=== PATIENT | male | born 1955 | race Caucasian/White ===

== ENCOUNTER → 2018-07-27 07:33 | Outpatient (CLI) | payer OTHER, SELFPAY | PROVIDERS: PCP General Practice; Visit Provider General Practice | DX: M25.511 Pain in right shoulder (principal); Z53.9 Procedure and treatment not carried out, unspecified reason ==

== ENCOUNTER 2019-07-22 12:38 | Day surgery (SDC) | payer MEDICARE, OTHER, SELFPAY ==
--- NOTE | 2019-07-22 | PATH_ITS ---
[facility] Accession Number: [id number] . 01 Material submitted: . colon - POLYP AT 60CM . 02 Diagnosis: Colon at 60 cm, Polyp: Tubular adenoma. MRV 07/23/2019 1242 Local . 02 Electronically signed: . Keon Kimbrough MD, PhD, Pathologist NPI- [id number] . 01 Gross description: . POLYP AT 60CM: Received in formalin are 2 fragment(s) of pritchett, soft tissue measuring 0.2 x 0.2 x 0.2 cm to 0.4 x 0.2 x 0.2 cm submitted entirely in 1 cassette(s) /[facility] [place] 2234 Local . 02 Pathologist provided ICD-10: D12.6 . 02 CPT . 498460 Performed at: 01 [facility] [address] [place] [address], [place], [place] [id number] MD Hardik Brothers MD Phone: [phone] Performed at: 02 [facility] [address] [place], [place] [id number] MD Callie Ramachandran MD Phone: [phone]
[2019-07-22] MEDS: SODIUM CHLORIDE 0.9% 1,000 ML 200 ML IV (14:07)
--- NOTE | 2019-07-22 14:07 | PM.HP.1 ---
History of Present Illness History of Present Illness Date Patient Seen: 07/22/19 Time Patient Seen: 14:08 Chief complaint: [id number] Narrative: Patient here for screening colonoscopy had polyps removed 5 years ago they were benign. Meds Home Medications and Allergies Home Medications Medication Instructions Recorded Confirmed Type amlodipine 10 mg PO DAILY 07/22/19 07/22/19 History aspirin 325 mg PO DAILY 07/22/19 07/22/19 History atorvastatin [Lipitor] 80 mg PO DAILY 07/22/19 07/22/19 History chlorthalidone 25 mg PO 4-6XD 07/22/19 07/22/19 History metoprolol succinate 50 mg PO DAILY 07/22/19 07/22/19 History omeprazole 20 mg PO DAILY 07/22/19 07/22/19 History Allergies Allergy/AdvReac Type Severity Reaction Status Date / Time amoxicillin Allergy Intermediate Hives Verified 07/22/19 13:57 REI Inhibitors Allergy Unknown Verified 07/22/19 13:57 Review of Systems Review of Systems ROS: Yes All systems reviewed with the patient and are negative except as otherwise documented Exam Narrative Exam Narrative: Patient is alert and oriented with no complaints Lungs are clear with no rales or wheezes Heart regular rhythm no murmur Abdomen soft no organomegaly no tenderness rectal to be done at colonoscopy Assessment & Plan Assessment & Plan narrative: Patient here for screening colonoscopy is asymptomatic with no hematochezia or melena. He had polyps removed 5 years ago. He has no unanswered questions.
[2019-07-22 14:08] VITALS: BP 161/85; PULSE 76; RESP 20; TEMP 36.3; O2SAT 98; BMI 32.3
--- NOTE | 2019-07-22 15:14 | PM.OP.ENDO ---
Operative Date/Time/Diagnoses Date of procedure: 07/22/19 Time of procedure: 15:14 Pre-op diagnosis: Screening colonoscopy Post-op diagnosis: other (Patient had 2 polyps 1 at 60 cm and the other at the hepatic flexure these were both excised with the cold snare I could only retrieved the 1 at 60 cm for histology) Procedure & Clinicians Study performed: Total colonoscopy to the cecum with polypectomy x2 Same procedure as scheduled: Yes Surgeon: Steve Ramsay Procedure Notes SCOAP/Timeout: This was done Procedure in detail: The patient was properly identified during surgical pause was given a total of 5 mg of Versed 100 micro g of fentanyl and remained comfortable throughout the procedure. The flexible fiberoptic colonoscope inserted transanally to the cecum patient had 1 5 mm polyp at 60 cm which was excised with a cold snare and submitted for histology. In the hepatic flexure the patient had a flat 8 mm polyp which I completely excised with the cold snare however I could not retrieve this polyp we searched extensively for added is could not find it. No other abnormalities were encountered procedures very well tolerated Scope withdrawal time: 18 Sedation minutes: 30 Findings: polyp Specimen(s): other (Polyp at 60 cm was submitted I could not obtain the polyp removed at the hepatic flexure) Complications: none Post-procedure Recommendations: Colonscopy in 5 years Disposition: PACU
[2019-07-22] MEDS: fentaNYL 250 MCG/5 ML INJ IV (15:16)
[2019-07-22] MEDS: MIDAZOLAM 5 MG/5 ML VIAL IV (15:16)
[2019-07-22 15:19] VITALS: BP 123/80; PULSE 78; RESP 15; TEMP 37.1; O2SAT 95
[2019-07-22 15:34] VITALS: BP 138/82; PULSE 82; RESP 16; TEMP 36.2; O2SAT 98
--- NOTE | 2019-07-22 15:46 | SUR.PHASEII ---
Patient discharged in stable condition with . VSS. Tolerated coffee without difficulty. Denies pain or nausea.
== END 2019-07-22 15:58 | disposition home or self-care (01) ==
PROVIDERS: PCP General Practice; Referring Provider Surgery; Visit Provider Surgery
PROC: 0DJD8ZZ Inspection of Lower Intestinal Tract, Via Natural or Artificial Opening Endoscopic (ICD-10-PCS; CPT 45378; principal; 2019-07-22 14:30)
DX: Z12.11 Encounter for screening for malignant neoplasm of colon (principal); Z86.010 Personal history of colon polyps; D12.6 Benign neoplasm of colon, unspecified
CPT/HCPCS: 45385; 99152; 99153; J2250; J3010

== ENCOUNTER → 2022-05-25 11:29 | Outpatient (CLI) | payer MEDICARE, OTHER, SELFPAY ==
--- NOTE | 2022-05-25 | DI.MRI.S_ITS ---
PROCEDURE: MR HEAD/BRAIN WO CON INDICATIONS: VISION LOSS TECHNIQUE: Non-contrast axial T1 spin echo, axial T2 fast spin echo, sagittal and axial FLAIR, coronal T2 fast spin echo, axial gradient echo, axial diffusion and ADC through the brain. COMPARISON: None. FINDINGS: Image quality: Excellent. CSF spaces: Ventricles appear symmetric in size and shape. Basal cisterns are patent. No extra-axial fluid collections. Brain: No intracranial bleeds or mass effects. There is cerebral volume loss for age. There are periventricular and deep white matter chronic small vessel ischemic changes. Brainstem appears normal. Diffusion-weighted images show no acute ischemic insults. No chronic ischemic insults. Normal intravascular flow voids are present. Skull and face: Calvarial bone marrow is normal in signal. Orbits are normal. Sinuses: Sinuses and mastoids are clear. IMPRESSION: 1. Mild volume loss. Minimal small vessel ischemic disease. 2. No acute process. No recent infarct. Dictated by: Dayanna Hendricks M.D. on 05/25/2022 at 12:04 Approved by: Dayanna Hendricks M.D. on 05/25/2022 at 12:05
--- NOTE | 2022-05-25 | DI.CT.S_ITS ---
PROCEDURE: CT CHEST WO CON INDICATIONS: CHRONIC OBSTRUCTIVE PULMONARY DISEASE TECHNIQUE: Noncontrast 5 mm thick sections acquired from the pulmonary apices to the posterior costophrenic angles. 1 mm lung window, 5 mm thick coronal and sagittal and 7 mm axial MIP reformats were then acquired. For radiation dose reduction, the following was used: automated exposure control, adjustment of mA and/or kV according to patient size. COMPARISON: None. FINDINGS: Image quality: Excellent. Lungs and pleura: No acute air space opacities. No pleural effusions or pneumothorax. Central and peripheral airways are patent and normal in caliber. Mediastinum: Heart size is normal. No pericardial effusion. No mediastinal adenopathy by size criteria. Thoracic aorta and central pulmonary arteries are normal in size. Scattered atheromatous calcifications are present within the aortic arch. Esophagus is normal in caliber. No hiatal hernia. Bones and chest wall: No suspicious bony lesions. No vertebral body compression fractures. No axillary or supraclavicular adenopathy by size criteria. Thyroid gland is unremarkable. Abdomen: A 1.7 cm calculus is present within the gallbladder fundus. Visualized upper abdominal solid organs and bowel loops appear otherwise normal in the absence of contrast. IMPRESSION: No suspicious pulmonary nodules or acute airspace opacities. Dictated by: Day Rogers M.D. on 05/25/2022 at 14:05 Approved by: Day Rogers M.D. on 05/25/2022 at 14:08
== END ==
PROVIDERS: PCP Family Medicine; Referring Provider Family Medicine; Visit Provider Family Medicine
DX: H54.60 Unqualified visual loss, one eye, unspecified (principal); H53.19 Other subjective visual disturbances; J44.9 Chronic obstructive pulmonary disease, unspecified
CPT/HCPCS: 70551; 71250

== ENCOUNTER → 2022-06-30 07:55 | Outpatient (CLI) | payer MEDICARE, OTHER, SELFPAY ==
--- NOTE | 2022-06-30 | DI.ECHO.S_ITS ---
[facility] +---------+ : : [address] : : : : [id number] : : : : Phone: [phone]+ Echocardiogram Report + + :Name: LIZETTE LIZ Study Date: 06/30/2022 Height: 66 in : :[facility] ReadingLocation: Weight: 200 lb : : Gender: Male BSA: 2.0 m2 : :: 1955 Age: 67 yrs BP: 162/85 mmHg: :Reason For Study: Chest Pain, History of AL : :Ordering Physician: BLUE, : :ODILIA Mace Performed By: Shahida Coronado : :Referring: ODILIA MCARTHUR : + + Interpretation Summary 1) Normal left ventricular size and thickness with mildly reduced systolic function (EF about 45%). 2) Basal inferior wall is akinetic. Basal to mid inferolateral wall are severely hypokinetic. 3) Normal right ventricular size and function. 4) There is mild aortic regurgitation. 5) There is mild aortic stenosis (valve area 1.8cm2, mean gradient 7mmHg, severity ratio 0.42). 6) No prior Echo available for comparison. Procedure: A two-dimensional transthoracic echocardiogram with color flow and Doppler was performed. The patient was in sinus bradycardia with heart rates between 49-66 bpm during the exam. Left Ventricle: The left ventricle is borderline dilated. Left ventricular ejection fraction is estimated to be 45 +/- 5%. Basal inferior wall is akinetic. Basal to mid inferolateral wall are severely hypokinetic. Diastolic parameters suggest a relaxation abnormality of the left ventricle, consistent with probable normal filling pressures. Right Ventricle: The right ventricle is normal in size and function. Atria: The left atrial size is normal. The right atrium is normal in size. There is no Doppler evidence for an interatrial shunt. Mitral Valve: The mitral valve is normal in structure and function. There is trace mitral regurgitation. Aortic Valve: The aortic valve is normal in structure and function. There is mild aortic stenosis. There is mild aortic regurgitation. Tricuspid Valve: The tricuspid valve is normal in structure and function. No tricuspid regurgitation. Pulmonary artery pressures cannot be estimated because of the lack of a measurable TR jet velocity. Pulmonic Valve: The pulmonic valve leaflets are thin and pliable; valve motion is normal. There is no pulmonic valvular regurgitation. Great Vessels: The dimensions of the ascending aorta are normal. The IVC was not well visualized secondary to technical limitations making central venous pressures difficult to estimate. Pericardium/ Pleura There is no pericardial effusion. There is no pleural effusion. MMode/2D Measurements & Calculations LVIDd: 5.6 cm LVOT diam: 2.3 cm LVIDs: 4.6 cm Ao root diam: 3.5 cm FS: 17.9 % asc Aorta Diam: 3.1 cm EPSS: 1.1 cm IVSd: 1.1 cm LVPWd: 1.2 cm LV jenkins. diameter/BSA (cm/m^2): 2.8 LV sys. diameter/BSA (cm/m^2): 2.3 LA dimension: 4.4 cm RA long axis: 4.9 cm LA A2 area: 15.2 cm2 RA area: 14.6 cm2 LA A4 area: 17.0 cm2 RA vol: 37.2 ml LA length (vol): 4.6 cm RA : 18.6 ml/m2 LA vol: 48.0 ml LA vol index: 24.0 ml/m2 RVD1 (basal): 2.8 cm LVLs ap4: 7.7 cm LVLd ap2: 8.6 cm LVLs ap2: 7.3 cm Doppler Measurements & Calculations Ao V2 max: 172.0 cm/sec LVOT Max Tito: 77.7 cm/sec Ao V2 mean: 123.0 cm/sec LV V1 max P.4 mmHg Ao max P.0 mmHg LV V1 VTI: 17.3 cm Ao mean P.0 mmHg MELI(I,D): 1.8 cm2 Ao V2 VTI: 40.8 cm MELI(V,D): 1.9 cm2 sev ratio: 0.42 MELI indexed to BSA (cm^2/m^2): 0.88 AI P1/2t: 423.4 msec AI dec slope: 350.0 cm/sec2 MV E max tito: 74.1 cm/sec PA V2 max: 102.0 cm/sec MV A max tito: 104.0 cm/sec PA V2 mean: 63.1 cm/sec MV E/A: 0.71 PA mean P.0 mmHg MV dec time: 0.34 sec MVA(VTI): 2.0 cm2 MV V2 mean: 68.7 cm/sec SV(LVOT): 71.9 ml MV mean P.0 mmHg MV V2 VTI: 36.2 cm AV P1/2t-pr_phl: 423.0 msec MV P1/2t-pr_phl: 100.0 msec AV VR_phl: 0.45 MELI(VTI)/BSA_phl: 0.88 Reading Physician:12:28 PM
== END ==
PROVIDERS: PCP Family Medicine; Referring Provider Family Medicine; Visit Provider Family Medicine
DX: I35.2 Nonrheumatic aortic (valve) stenosis with insufficiency (principal); R07.9 Chest pain, unspecified; R00.2 Palpitations; I25.2 Old myocardial infarction
CPT/HCPCS: 93306

== ENCOUNTER → 2022-08-18 07:34 | Outpatient (CLI) | payer MEDICARE, OTHER, SELFPAY ==
--- NOTE | 2022-08-18 | DI.US.S_ITS ---
PROCEDURE: US ABDOMEN COMPLETE INDICATIONS: RIGHT UPPER QUADRANT PAIN. ACUTE GASTRITIS WITHOUT BLEEDING. TECHNIQUE: Real-time scanning was performed of the abdominal and retroperitoneal organs, with image documentation. COMPARISON: [facility], [place], CT CHEST WO [facility], 05/25/2022, 11:56. FINDINGS: Liver: Echogenic. Main portal vein patent with antegrade flow Gallbladder: Stones and sludge are present. Nonspecific thickening of the gallbladder wall present measuring up to 5 millimeters. No sonographic Mora sign elicited. Biliary ducts: Difficult evaluation due to bowel gas. No definite intrahepatic ductal dilation identified. Possible extrahepatic ductal dilation measuring up to 12 millimeters. Pancreas: Not well visualized due to bowel gas. Spleen: Spleen is normal in size and homogeneous in echotexture. Kidneys: Kidneys are normal in size and echotexture. Right kidney measures 10.0 cm long; left kidney measures 10.1 cm long. No hydronephrosis or nephrolithiasis. No solid masses. Aorta: Not well visualized due to bowel gas. Iliacs: Not well visualized due to bowel gas. IVC: Not well visualized due to bowel gas. Miscellaneous: No free abdominal fluid. IMPRESSION: 1. Technically challenging examination due to bowel gas. 2. Cholelithiasis present as before. Nonspecific thickening of the gallbladder wall also present, however no sonographic Mora sign elicited and the gallbladder does not appear distended. Findings are considered not highly suspicious for acute cholecystitis, but acute cholecystitis cannot be excluded. Clinical correlation is recommended, if additional imaging is desired nuclear medicine hepatobiliary scan may be helpful. 3. Possible extrahepatic biliary ductal dilation. No intrahepatic ductal dilation identified. 4. The liver is echogenic, a nonspecific finding commonly seen in the setting of steatosis. Dictated by: Feng Quintanilla M.D. on 08/18/2022 at 18:53 Approved by: Feng Quintanilla M.D. on 08/18/2022 at 18:58
== END ==
PROVIDERS: PCP Family Medicine; Referring Provider Family Medicine; Visit Provider Family Medicine
DX: K29.00 Acute gastritis without bleeding (principal); R10.11 Right upper quadrant pain; K80.20 Calculus of gallbladder without cholecystitis without obstruction
CPT/HCPCS: 76700

== ENCOUNTER 2022-09-07 01:23 | Emergency (ER) | payer MEDICARE, OTHER, SELFPAY ==
[2022-09-07] VITALS (26 sets, daily range): BP systolic 138–221; BP diastolic 63–106; PULSE 59–82; RESP 18–52; TEMP 36.4–36.8; O2SAT 89–99; BMI 32.3
--- NOTE | 2022-09-07 01:32 | DI.US.S_ITS ---
PROCEDURE: US ABDOMEN LIMITED INDICATIONS: RUQ PAIN, HTN TECHNIQUE: Real-time focused scanning was performed of the abdomen, with image documentation. COMPARISON: [facility], , US ABDOMEN COMPLETE, 08/18/2022, 8:02. FINDINGS: Liver length of 14.1 centimeters. The liver is echogenic. Numerous tiny mobile gallstones are present within the gallbladder. No gallbladder wall thickening or sonographic Mora sign. Extrahepatic bile duct is not well seen due to bowel gas but measures approximately 5 millimeters. No intrahepatic ductal dilation identified. Visualized pancreas is unremarkable sonographically. Visualized abdominal aorta is nonaneurysmal, proximal abdominal aorta not visualized, mid abdominal aorta 1.7 centimeters, distal abdominal aorta 1.3 centimeters, right common iliac artery 0.9 centimeters, left common iliac artery 0.9 centimeters. IMPRESSION: 1. Cholelithiasis without evidence of acute cholecystitis. 2. The liver is echogenic, a nonspecific finding commonly seen in the setting of steatosis. This report is concordant with the preliminary report. Dictated by: Feng Quintanilla M.D. on 09/07/2022 at 7:50 Approved by: Feng Quintanilla M.D. on 09/07/2022 at 7:54
--- NOTE | 2022-09-07 01:33 | ED_ITS ---
HPI - General Adult General Chief complaint: Abdominal Pain Stated complaint: GALL BLADDER ATTACK Time Seen by Provider: 09/07/22 01:25 Source: patient and family Mode of arrival: Ambulatory Limitations: no limitations History of Present Illness HPI narrative: Patient is a 67-year-old male. Has a known history of gallbladder disease. Approximately 1 week ago had a preop appointment with General surgery to discuss having his gallbladder removed. He is had a couple gallbladder attacks prior to this evening which led to that appointment with General surgery. He states he is scheduled for surgery in approximately 2-3 weeks. He states that he was at his normal state of health last evening. He did eat pizza last night. At approximately midnight he woke up with pain that is in his epigastric region that he states radiated up to the left side of his chest and also to his back. He states he has had pain like this in the past but this is the worst it has ever been. No problems breathing. No nausea. He also states the pain is throughout his abdomen. No change in bowel habits. No urinary symptoms. Has not tried anything for symptoms prior to arrival. He does report a history of hypertension. He did take his blood pressure medicine last evening. He has had a heart attack in the past. He states he is had a fairly extensive workup of his heart by his primary doctor because of discomfort that he has been having in his chest and abdomen. He reports that workup has been unremarkable up to this point they are hoping that removing his gallbladder would help the symptoms. He states that the discomfort is in his epigastric region. It does radiate to his back and also up into the left side of his chest. Related Data Home Medications Medication Instructions Recorded Confirmed atorvastatin 80 mg tablet (Lipitor) 80 mg PO DAILY 07/22/19 09/01/22 ascorbic acid (vitamin C) 500 mg mg PO 09/01/22 09/01/22 capsule aspirin 81 mg capsule 81 mg PO DAILY 09/01/22 09/01/22 carvedilol 6.25 mg tablet 6.25 mg PO .UNKNOWN 09/01/22 09/01/22 chlorthalidone 50 mg tablet 50 mg PO DAILY 09/01/22 09/01/22 cholecalciferol (vitamin D3) 125 125 mcg PO DAILY 09/01/22 09/01/22 mcg (5,000 unit) capsule esomeprazole magnesium 40 mg 40 mg PO DAILY 09/01/22 09/01/22 capsule,delayed release (Nexium) gabapentin 100 mg capsule 100 mg PO DAILY 09/01/22 09/01/22 losartan 100 mg tablet 100 mg PO DAILY 09/01/22 09/01/22 valacyclovir 1 gram tablet 1,000 mg PO DAILY 09/01/22 09/01/22 zinc acetate 50 mg (zinc) capsule 50 mg PO DAILY 09/01/22 09/01/22 (Galzin) Allergies Allergy/AdvReac Type Severity Reaction Status Date / Time amoxicillin Allergy Intermediate Hives Verified 09/01/22 09:18 REI Inhibitors Allergy Unknown Verified 09/01/22 09:18 Review of Systems Review of Systems ROS Unobtainable: All systems reviewed & are unremarkable except as noted in HPI and below Patient History Medical History Acute gastritis Coronary arteriosclerosis Hypertension RUQ abdominal pain Social History marital status: household members: spouse lives independently: Yes occupational status: previously employed Smoking Status: Former smoker alcohol intake: former Smoking Status: Former smoker Exam Initial Vital Signs Initial Vital Signs: Vital Signs Temperature 98.2 F 09/07/22 01:31 Pulse Rate 67 09/07/22 01:31 Respiratory Rate 22 09/07/22 01:31 Blood Pressure 221/98 H 09/07/22 01:31 Pulse Oximetry 99 09/07/22 01:31 Oxygen Delivery Method Room Air 09/07/22 01:31 Const General: diaphoretic and ill appearing HENCT Head: normal to inspection and normocephalic Resp Effort & Inspection: normal respiratory effort Auscultation: clear to auscultation bilaterally Cardio Rate: regular rate Rhythm: regular rhythm GI Inspection: non-distended Palpation: No firm and tender (Epigastric region) Back/Spine/Pelvis Back: normal to inspection Skin General: pallor Neuro General: patient alert, patient awake, patient oriented x3 and moves all extremities Extrem General: No edema Psych Appearance: grossly normal Course Orders Ordered: ED Orders 09/07/22 01:30 Complete Blood Count AUTO DIFF Stat Comprehensive Metabolic Panel Stat Lipase Stat Troponin & CK Cardiac Panel Stat 09/07/22 01:32 US abdomen limited Stat 09/07/22 01:52 EKG-12 Lead Stat 09/07/22 01:56 XR chest 1V Stat 09/07/22 03:05 CT angio chest abdomen pelvis Stat 09/07/22 04:02 Troponin & CK Cardiac Panel Stat Nicardipine HCl 25 mg/ Sodium (Chloride) 250 mls @ 50 mls/hr IV TITRATE LILIAN; Protocol Last Titration: 09/07/22 06:25 Dose: 0 mg/hr, 0 mls/hr Documented By: Admin: 09/07/22 03:25 Dose: 5 mg/hr, 50 mls/hr Documented By: NGHIA Discontinued Medications Hydrocodone Bitart/Acetaminophen (Hydrocodone/Acet 5/325 Prepack) 1 bottle MISC SEEINSTR ONE Stop: 09/07/22 06:48 Hydromorphone HCl (Hydromorphone 1 Mg Inj) 1 mg IV NOW ONE Stop: 09/07/22 01:33 Last Admin: 09/07/22 01:42 Dose: 1 mg Documented By: NGHIA Ketorolac Tromethamine (Ketorolac 30 Mg/Ml Vial) 30 mg IV NOW ONE Stop: 09/07/22 01:29 Last Admin: 09/07/22 01:42 Dose: 30 mg Documented By: NGHIA Ondansetron HCl (Ondansetron 4 Mg/2 Ml Inj) 4 mg IV NOW ONE Stop: 09/07/22 01:33 Last Admin: 09/07/22 01:42 Dose: 4 mg Documented By: NGHIA Ondansetron HCl (Ondansetron 4 Mg Odt Prepack) 1 bottle MISC SEEINSTR ONE Stop: 09/07/22 06:48 Vital Signs Vital signs: Vital Signs - 8 hr 09/07/22 01:31 09/07/22 02:19 09/07/22 02:28 Temperature 98.2 F Pulse Rate 67 61 Respiratory Rate 22 Blood Pressure 221/98 H 199/106 H Pulse Oximetry 99 89 L Oxygen Delivery Method Room Air 09/07/22 02:28 09/07/22 02:30 09/07/22 03:00 Temperature Pulse Rate 59 L 62 61 Respiratory Rate Blood Pressure Pulse Oximetry 94 95 97 Oxygen Delivery Method 09/07/22 03:30 09/07/22 03:31 09/07/22 03:31 Temperature Pulse Rate 59 L 62 Respiratory Rate 23 21 Blood Pressure 186/79 H 186/79 H Pulse Oximetry 92 91 Oxygen Delivery Method 09/07/22 03:36 09/07/22 03:36 09/07/22 03:40 Temperature Pulse Rate 66 64 Respiratory Rate 27 H 19 Blood Pressure 168/72 H Pulse Oximetry 92 91 Oxygen Delivery Method 09/07/22 03:40 09/07/22 03:45 09/07/22 03:45 Temperature Pulse Rate 68 Respiratory Rate 24 Blood Pressure 163/69 H 152/67 H Pulse Oximetry 91 Oxygen Delivery Method 09/07/22 03:50 09/07/22 03:50 09/07/22 03:55 Temperature Pulse Rate 68 73 Respiratory Rate 22 25 H Blood Pressure 152/66 H Pulse Oximetry 92 89 L Oxygen Delivery Method 09/07/22 03:55 09/07/22 04:00 09/07/22 04:00 Temperature Pulse Rate 78 Respiratory Rate 24 Blood Pressure 154/68 H 157/70 H Pulse Oximetry 91 Oxygen Delivery Method 09/07/22 04:05 09/07/22 04:05 09/07/22 04:10 Temperature Pulse Rate 71 71 Respiratory Rate 21 19 Blood Pressure 147/67 H Pulse Oximetry 91 91 Oxygen Delivery Method 09/07/22 04:10 09/07/22 04:15 09/07/22 04:15 Temperature Pulse Rate 73 Respiratory Rate 21 Blood Pressure 143/65 H 142/63 H Pulse Oximetry 91 Oxygen Delivery Method 09/07/22 04:20 09/07/22 04:20 09/07/22 04:25 Temperature Pulse Rate 82 75 Respiratory Rate 27 H 21 Blood Pressure 149/63 H Pulse Oximetry 93 Oxygen Delivery Method 09/07/22 04:25 09/07/22 04:30 09/07/22 06:26 Temperature Pulse Rate 80 Respiratory Rate 52 H Blood Pressure 139/63 Pulse Oximetry 93 93 Oxygen Delivery Method 09/07/22 06:27 09/07/22 06:27 09/07/22 06:30 Temperature Pulse Rate 70 Respiratory Rate Blood Pressure 139/65 139/66 Pulse Oximetry 93 Oxygen Delivery Method 09/07/22 06:30 09/07/22 06:35 09/07/22 06:35 Temperature Pulse Rate 73 70 Respiratory Rate Blood Pressure 139/63 Pulse Oximetry 97 95 Oxygen Delivery Method 09/07/22 06:38 09/07/22 06:40 Temperature Pulse Rate 69 Respiratory Rate Blood Pressure 138/66 Pulse Oximetry 95 Oxygen Delivery Method Medical Decision Making Medical Records Medical records reviewed: Yes I reviewed the patient's medical records. Lab Data Lab results reviewed: Yes I reviewed the patient's lab results. 09/07/22 01:30 09/07/22 01:30 Labs: Lab Results 09/07/22 09/07/22 09/07/22 Range/Units 01:30 01:30 01:30 WBC 9.1 (4.5-11.0) X10^3/uL RBC 5.37 (4.5-5.9) X10^6/uL Hgb 16.0 (13.5-17.5) g/dL Hct 44.9 (41-53) % MCV 83.6 (80-100) fL MCH 29.8 (26-34) PG MCHC 35.6 (30-36) % RDW 13.0 (11.6-14.8) % Plt Count 174 (150-400) X10^3/uL Neut % (Auto) 67.3 (50-75) % Lymph % (Auto) 19.1 L (25-40) % [place] % (Auto) 6.7 (3-14) % Eos % (Auto) 4.3 H (2-4) % Baso % (Auto) 2.6 H (0-2) % Neut # (Auto) 6100 (7320-6621) /uL Lymph # (Auto) 1700 (3881-2355) /uL [place] # (Auto) 600 (0-900) /uL Eos # (Auto) 400 (0-450) /uL Baso # (Auto) 200 H (0-100) /uL Sodium 141 (137-145) mmol/L Potassium 3.6 (3.4-5.1) mmol/L Chloride 102 (98-107) mmol/L Carbon Dioxide 27 (22-32) mmol/L BUN 19 (9-20) mg/dL Creatinine 1.25 (0.66-1.25) mg/dL Estimated GFR > 60 (>60) mL/min BUN/Creatinine Ratio 15.2 (6-22) Glucose 179 H (80-110) mg/dL Calcium 9.5 (8.4-10.2) mg/dL Total Bilirubin 0.8 (0.2-1.3) mg/dL AST 35 (17-59) IU/L ALT 37 (<50) IU/L Alkaline Phosphatase 79 (38-126) U/L Total Creatine Kinase 235 H (55-170) U/L CK-MB (CK-2) 2.12 (<2.37) ng/mL CK-MB (CK-2) Rel Index 0.9 L (1.5-5.0) % Troponin I 0.013 (0.01-0.034) ng/mL Total Protein 7.5 (6.3-8.2) g/dL Albumin 4.6 (3.5-5.0) g/dL Globulin 2.9 (1.7-4.1) g/dL Albumin/Globulin Ratio 1.6 (1.0-2.8) Lipase 160 (23-300) U/L 09/07/22 Range/Units 04:02 WBC (4.5-11.0) X10^3/uL RBC (4.5-5.9) X10^6/uL Hgb (13.5-17.5) g/dL Hct (41-53) % MCV (80-100) fL MCH (26-34) PG MCHC (30-36) % RDW (11.6-14.8) % Plt Count (150-400) X10^3/uL Neut % (Auto) (50-75) % Lymph % (Auto) (25-40) % [place] % (Auto) (3-14) % Eos % (Auto) (2-4) % Baso % (Auto) (0-2) % Neut # (Auto) (1896-0951) /uL Lymph # (Auto) (7181-4188) /uL [place] # (Auto) (0-900) /uL Eos # (Auto) (0-450) /uL Baso # (Auto) (0-100) /uL Sodium (137-145) mmol/L Potassium (3.4-5.1) mmol/L Chloride (98-107) mmol/L Carbon Dioxide (22-32) mmol/L BUN (9-20) mg/dL Creatinine (0.66-1.25) mg/dL Estimated GFR (>60) mL/min BUN/Creatinine Ratio (6-22) Glucose (80-110) mg/dL Calcium (8.4-10.2) mg/dL Total Bilirubin (0.2-1.3) mg/dL AST (17-59) IU/L ALT (<50) IU/L Alkaline Phosphatase (38-126) U/L Total Creatine Kinase 195 H (55-170) U/L CK-MB (CK-2) 1.90 (<2.37) ng/mL CK-MB (CK-2) Rel Index 1.0 L (1.5-5.0) % Troponin I 0.013 (0.01-0.034) ng/mL Total Protein (6.3-8.2) g/dL Albumin (3.5-5.0) g/dL Globulin (1.7-4.1) g/dL Albumin/Globulin Ratio (1.0-2.8) Lipase (23-300) U/L Imaging Data US - abdomen: Radiologist's Impression: Cholelithiasis Negative for acute cholecystitis or biliary obstruction Mid aorta 1.7 cm Distal aorta 1.3 cm Chest x-ray: Radiologist's Impression: Mild right basilar subsegmental atelectasis CT chest abdomen pelvis dissection protocol: Radiologist's Impression: No thoracic aortic aneurysm/dissection, intramural hematoma or penetrating atherosclerotic ulcer. No abdominal aortic aneurysm or dissection Cholelithiasis with gallbladder wall thickening/pericholecystic fluid can be correlated with ultrasound. No biliary dilation ECG Data Attestation: I personally reviewed and interpreted this ECG as follows: Interpretation: Sinus rhythm Ventricular rate is 60 LVH Normal QRS Normal QTC No ST T wave changes MDM Narrative Medical decision making narrative: Patient arrived in quite a bit of discomfort that he states has in his epigastric region that radiated to his back and also slightly into his left side of his chest. Was significantly hypertensive with systolic blood pressure greater than 225 and diastolic greater than 100. He was diaphoretic and pale. No vomiting. He states he has had discomfort like this in the past which has been attributed to his gallbladder but has never been this bad. He was given pain medication which did improve his symptoms but did not improve his blood pressure. Review his medical record shows that when he was seen in the General surgery Clinic office approximately 1 week ago his blood pressure had a systolic of 180. His LFTs are normal. Lipase is normal. Right upper quadrant ultrasound shows no signs of acute cholecystitis. Review his prior ultrasound shows that the gallstone that once was present now seems to not be present. He potentially could have passed this stone overnight which is what caused his discomfort. I also have concern given the location of his symptoms his chest pain and back pain and his hypertension and the lack of a definitive gallbladder source that he potentially may have a aortic pathology. Patient states he is had a very extensive workup of his heart and lungs in his never been told that he is had an aneurysm or dissection. We discussed the possibility that a dissection can develop rather quickly and could still potentially be there despite prior normal CT scans. We also discussed the differences between an aneurysm and dissection. His mid and distal aorta on ultrasound are unremarkable but his proximal aorta is obscured. Unfortunately due to a mechanical issue with the CT scanner I am unable to obtain a CT scan with contrast which would be needed in order to rule out aortic pathology. the plan will be is to transfer the patient to [facility] in order to obtain the CT scan and if normal for him to return to this emergency department for further evaluation. He stated that he did take his blood pressure medication last evening. His medicine list has him taking carvedilol and losartan. Given his persistent hypertension he was started on a nicardipine drip. His blood pr essure is at goal for a potential dissection/aneurysm. Patient is stable for transport. Patient returned from the CTA without issue. The CTA did not show any signs of acute aortic pathology. It does show potentially thickened gallbladder wall with pericholecystic fluid and cholelithiasis which is somewhat different from the ultrasound report. Patient's symptoms are much improved/resolved. His blood pressures improved as well. Patient's blood pressure remained adequate off of the nicardipine which was stopped upon his return. I did discuss the case with Dr. Miller who is on-call for General surgery and is also the 1 who evaluated the patient for a elective cholecystectomy. Given the fact that the patient's symptoms have now improved/resolved, lack of leukocytosis, lack of elevation in LFTs, lack of elevation in lipase, lack of definitive findings of acute cholecystitis on the ultrasound the plan will be is for the patient to be discharged home. The general surgery office will attempt to expedite his outpatient surgical intervention. Who will discharge patient home with pain and nausea medication. We did discuss the importance of avoiding certain foods that may cause his symptoms to return. We discussed return precautions. He expressed understanding and agreement. Discharge Plan Departure Patient Disposition: Home Clinical Impression: Biliary colic, Hypertension Instructions: High Blood Pressure, DI for Gallstones Activity Restrictions/Additional Instructions: You should be receiving a call from the general surgery office to update you on potentially expediting your outpatient gallbladder surgery. I recommend that you avoid foods that are high in fat/oil/grease as this could make your symptoms return. You can take the pain medicine and nausea medicine as needed. Your blood pressure was also severely elevated today. I recommend you continue to take all of your medications as directed. It is important that you take your blood pressure at home and record these numbers. Take this log in to your primary doctor to discuss potentially needing to adjust some of your blood pressure medicines. Return to the emergency department for new or worsening symptoms. Prescriptions: No Action aspirin 81 mg capsule 81 mg PO DAILY cholecalciferol (vitamin D3) 125 mcg (5,000 unit) capsule 125 mcg PO DAILY chlorthalidone 50 mg tablet 50 mg PO DAILY losartan 100 mg tablet 100 mg PO DAILY carvedilol 6.25 mg tablet 6.25 mg PO .UNKNOWN esomeprazole magnesium [Nexium] 40 mg capsule,delayed release(DR/EC) 40 mg PO DAILY gabapentin 100 mg capsule 100 mg PO DAILY ascorbic acid (vitamin C) 500 mg capsule PO Galzin 50 mg (zinc) capsule 50 mg PO DAILY valacyclovir 1 gram tablet 1,000 mg PO DAILY atorvastatin [Lipitor] 80 mg Tablet 80 mg PO DAILY Referrals: Bryan Barr MD [Primary Care Provider] - Stand Alone Forms: Patient Portal/API
[2022-09-07] MEDS: HYDROMORPHONE 1 MG INJ IV (01:42)
[2022-09-07] MEDS: KETOROLAC 30 MG/ML VIAL IV (01:42)
[2022-09-07] MEDS: ONDANSETRON 4 MG/2 ML INJ IV (01:42)
[2022-09-07 01:49] LABS: Add Manual Diff / Slide Review NO; Basophils Absolute Auto 200 /uL (0-100); Basophils Percent Auto 2.6 % (0-2); Eosinophils Absolute Auto 400 /uL (0-450); Eosinophils Percent Auto 4.3 % (2-4); Hematocrit 44.9 % (41-53); Lymphocytes Absolute Auto 1700 /uL (1100-4500); Lymphocytes Percent Auto 19.1 % (25-40); Mean Corpuscular HGB Conc 35.6 % (30-36); Mean Corpuscular Hemoglobin 29.8 PG (26-34); Mean Corpuscular Volume 83.6 fL (80-100); Monocytes Absolute Auto 600 /uL (0-900); Monocytes Percent Auto 6.7 % (3-14); Neutrophils Absolute Auto 6100 /uL (1500-7000); Neutrophils Percent Auto 67.3 % (50-75); Platelet Count 174 X10^3/uL (150-400); Red Blood Cell Count 5.37 X10^6/uL (4.5-5.9); White Blood Cell Count 9.1 X10^3/uL (4.5-11.0)
--- NOTE | 2022-09-07 01:56 | DI.RAD.S_ITS ---
PROCEDURE: XR CHEST 1V INDICATIONS: chest pain TECHNIQUE: One view of the chest was acquired. COMPARISON: None. FINDINGS: Surgical changes and devices: None. Lungs and pleura: Lung volumes are low. Elevation of the right hemidiaphragm. Minimal right basilar opacity present. No pleural effusion or pneumothorax. Mediastinum: Mediastinal contours appear normal. Heart size is normal. Bones and chest wall: No suspicious bony lesions. Overlying soft tissues appear unremarkable. IMPRESSION: Low lung volumes with minimal right basilar opacities likely representing atelectasis, aspiration or pneumonia difficult to exclude. This report is concordant with the preliminary report. Dictated by: Feng Quintanilla M.D. on 09/07/2022 at 7:46 Approved by: Feng Quintanilla M.D. on 09/07/2022 at 7:50
[2022-09-07 02:03] LABS: Alanine Aminotransferase 37 IU/L (<50); Albumin 4.6 g/dL (3.5-5.0); Albumin Globulin Ratio 1.6 (1.0-2.8); Alkaline Phosphatase 79 U/L (38-126); Aspartate Aminotransferase 35 IU/L (17-59); BUN Creatinine Ratio 15.2 (6-22); Bilirubin Total 0.8 mg/dL (0.2-1.3); Blood Urea Nitrogen 19 mg/dL (9-20); Calcium 9.5 mg/dL (8.4-10.2); Carbon Dioxide 27 mmol/L (22-32); Chloride 102 mmol/L (98-107); Estimated Glomerular Filt Rate > 60 mL/min (>60); Globulin 2.9 g/dL (1.7-4.1); Glucose 179 mg/dL (80-110); HEMOLYSIS 19 (0-50); Lipase 160 U/L (23-300); Potassium 3.6 mmol/L (3.4-5.1); Sodium 141 mmol/L (137-145); Total Protein 7.5 g/dL (6.3-8.2)
[2022-09-07 02:04] LABS: Creatine Kinase 235 U/L (55-170)
[2022-09-07 02:15] LABS: Troponin I 0.013 ng/mL (0.01-0.034)
[2022-09-07 02:19] LABS: CKMB % Relative Index 0.9 % (1.5-5.0); Creatine Kinase MB 2.12 ng/mL (<2.37)
[2022-09-07] MEDS: NICARDIPINE 25 MG in SODIUM CHLORIDE 0.9% 240 ML 50 MG IV (03:25)
[2022-09-07 04:19] LABS: Creatine Kinase 195 U/L (55-170)
[2022-09-07 04:32] LABS: Troponin I 0.013 ng/mL (0.01-0.034)
--- NOTE | 2022-09-07 04:54 | PC.NURSE ---
Pt transported via [facility] ambulance to [facility] for contrast CT.
--- NOTE | 2022-09-07 06:10 | PC.NURSE ---
Pt returned from [facility] via [facility] ambulance transport.
[2022-09-07] MEDS: ONDANSETRON 4 MG ODT PREPACK 1 BOTTLE MISC (06:59)
[2022-09-07] MEDS: HYDROCODONE/ACET 5/325 PREPACK 1 BOTTLE MISC (06:59)
== END 2022-09-07 07:12 | disposition home or self-care (01) ==
PROVIDERS: Emergency Provider Emergency Medicine; PCP Family Medicine
DX: K80.50 Calculus of bile duct without cholangitis or cholecystitis without obstruction (principal); I10 Essential (primary) hypertension; Z87.891 Personal history of nicotine dependence
CPT/HCPCS: 36415; 71045; 76705; 80053; 82550; 82553; 83690; 84484; 85025; 93005; 96365; 96375; 99284; J1170; J1885; J2405

== ENCOUNTER 2022-09-08 22:44 | Observation (INO) | payer MEDICARE, OTHER, SELFPAY ==
[2022-09-08 22:50] VITALS: BP 221/100; PULSE 62; RESP 18; TEMP 36.4; O2SAT 99; BMI 32.3
[2022-09-08 23:00] VITALS: BP 200/87; PULSE 65; RESP 28; O2SAT 98
--- NOTE | 2022-09-08 23:07 | ED_ITS ---
HPI - General Adult General Chief complaint: Abdominal Pain Stated complaint: states galbladder attack Time Seen by Provider: 09/08/22 22:49 Source: patient Mode of arrival: Ambulatory Limitations: no limitations History of Present Illness HPI narrative: Patient is a 59-year-old male who I evaluated here in the emergency department couple days ago for right upper quadrant abdominal pain. He is known gallbladder disease. At that point he had indications that were somewhat concerning for acute cholecystitis however his blood counts were relatively unremarkable and his pain was controlled so the decision was to send him home and the surgery department going to move his surgery from 2 weeks from now until next week. He is scheduled for surgery on Monday. He arrives the emergency department today because he states he is had increasing discomfort to his right upper quadrant and right back and left side of his chest similar to his presentation a couple days ago. Nausea no vomiting. No fevers. No change in bowel habits. No urinary symptoms. Related Data Home Medications Medication Instructions Recorded Confirmed atorvastatin 80 mg tablet (Lipitor) 80 mg PO DAILY 07/22/19 09/01/22 ascorbic acid (vitamin C) 500 mg 1,000 mg PO DAILY 09/01/22 09/09/22 capsule aspirin 81 mg capsule 81 mg PO DAILY 09/01/22 09/09/22 carvedilol 6.25 mg tablet 6.25 mg PO BID 09/01/22 09/09/22 chlorthalidone 50 mg tablet 25 mg PO DAILY 09/01/22 09/09/22 cholecalciferol (vitamin D3) 125 125 mcg PO DAILY 09/01/22 09/01/22 mcg (5,000 unit) capsule esomeprazole magnesium 40 mg 40 mg PO DAILY 09/01/22 09/01/22 capsule,delayed release (Nexium) gabapentin 100 mg capsule 100 mg PO BID 09/01/22 09/09/22 losartan 100 mg tablet 100 mg PO DAILY 09/01/22 09/01/22 valacyclovir 1 gram tablet 1,000 mg PO DAILY 09/01/22 09/01/22 zinc acetate 50 mg (zinc) capsule 50 mg PO DAILY 09/01/22 09/01/22 (Galzin) Allergies Allergy/AdvReac Type Severity Reaction Status Date / Time amoxicillin Allergy Intermediate Hives Verified 09/01/22 09:18 REI Inhibitors Allergy Unknown Verified 09/01/22 09:18 Review of Systems Constitutional Constitutional: Reports system reviewed and no additional complaints, except as documented Cardiovascular Cardiovascular: Reports system reviewed and no additional complaints, except as documented Respiratory Respiratory: Reports system reviewed and no additional complaints, except as documented Gastrointestinal Gastrointestinal: Reports system reviewed and no additional complaints, except as documented Integumentary/Breasts Skin/Breast: Reports system reviewed and no additional complaints, except as documented Neurologic Neurologic: Reports system reviewed and no additional complaints, except as documented Hematologic/Lymphatic On Anticoagulants: No Patient History Medical History Acute gastritis Coronary arteriosclerosis Hypertension RUQ abdominal pain Social History marital status: household members: spouse lives independently: Yes occupational status: previously employed Smoking Status: Former smoker alcohol intake: former Smoking Status: Former smoker alcohol intake frequency: holidays/special occasions only Alcohol type: beer Substance Use Type: does not use Exam Initial Vital Signs Initial Vital Signs: Vital Signs Temperature 97.5 F L 09/08/22 22:50 Pulse Rate 62 09/08/22 22:50 Respiratory Rate 18 09/08/22 22:50 Blood Pressure 221/100 H 09/08/22 22:50 Pulse Oximetry 99 09/08/22 22:50 Oxygen Delivery Method Room Air 09/08/22 22:50 Const General: cooperative and healthy appearing HENVA Head: normal to inspection Resp Effort & Inspection: normal respiratory effort Auscultation: clear to auscultation bilaterally Cardio Rate: regular rate Rhythm: regular rhythm GI Inspection: normal to inspection Palpation: soft, No firm and tender Skin General: no rashes or lesions noted Neuro General: patient alert, patient awake and moves all extremities Extrem General: capillary refill normal and No edema Psych Appearance: grossly normal Course Orders Ordered: ED Orders 09/08/22 23:12 Complete Blood Count AUTO DIFF Stat Comprehensive Metabolic Panel Stat Lipase Stat 09/08/22 23:25 Consult to General Surgery Urgent 09/08/22 23:35 COVID19 -Nasal RAPID Stat Hydromorphone HCl (Hydromorphone 0.5 Mg Inj) 1 mg IV Q2H PRN PRN Reason: Pain, Mild (1-3) Last Admin: 09/09/22 01:25 Dose: 1 mg Documented By: CB Sodium Chloride (Normal Saline 0.9%) 1,000 mls @ 125 mls/hr IV CONT LILIAN Last Admin: 09/09/22 01:26 Dose: 125 mls/hr Documented By: Infusion: 09/09/22 01:05 Dose: 0 mls/hr Documented By: Admin: 09/08/22 23:24 Dose: 125 mls/hr Documented By: RB Ondansetron HCl (Ondansetron 4 Mg/2 Ml Inj) 4 mg IV Q4HR PRN PRN Reason: Nausea And Vomiting Discontinued Medications Hydromorphone HCl (Hydromorphone 1 Mg Inj) 1 mg IV NOW ONE Stop: 09/08/22 23:13 Last Admin: 09/08/22 23:24 Dose: 1 mg Documented By: RB Piperacillin Sod/Tazobactam (Sod 4.5 gm/ Sodium Chloride) 100 mls @ 200 mls/hr IV NOW ONE Stop: 09/08/22 23:11 Last Infusion: 09/09/22 00:14 Dose: 0 mls/hr Documented By: Admin: 09/08/22 23:25 Dose: 200 mls/hr Documented By: RB Vital Signs Vital signs: Vital Signs - 8 hr 09/08/22 22:50 09/08/22 23:00 Temperature 97.5 F L Pulse Rate 62 65 Respiratory Rate 18 28 H Blood Pressure 221/100 H 200/87 H Pulse Oximetry 99 98 Oxygen Delivery Method Room Air Room Air Medical Decision Making Lab Data Lab results reviewed: Yes I reviewed the patient's lab results. 09/08/22 23:12 09/08/22 23:12 Labs: Lab Results 09/08/22 09/08/22 09/08/22 Range/Units 23:12 23:12 23:12 WBC 15.9 H D (4.5-11.0) X10^3/uL RBC 5.21 (4.5-5.9) X10^6/uL Hgb 15.4 (13.5-17.5) g/dL Hct 43.7 (41-53) % MCV 83.9 (80-100) fL MCH 29.5 (26-34) PG MCHC 35.1 (30-36) % RDW 13.0 (11.6-14.8) % Plt Count 137 L (150-400) X10^3/uL Neut % (Auto) 77.5 H (50-75) % Lymph % (Auto) 10.7 L (25-40) % [place] % (Auto) 8.8 (3-14) % Eos % (Auto) 2.5 (2-4) % Baso % (Auto) 0.5 (0-2) % Neut # (Auto) 77604 H (3194-2287) /uL Lymph # (Auto) 1700 (7512-2697) /uL [place] # (Auto) 1400 H (0-900) /uL Eos # (Auto) 400 (0-450) /uL Baso # (Auto) 100 (0-100) /uL Sodium 138 (137-145) mmol/L Potassium 3.4 (3.4-5.1) mmol/L Chloride 99 (98-107) mmol/L Carbon Dioxide 28 (22-32) mmol/L BUN 21 H (9-20) mg/dL Creatinine 1.28 H (0.66-1.25) mg/dL Estimated GFR > 60 (>60) mL/min BUN/Creatinine Ratio 16.4 (6-22) Glucose 122 H (80-110) mg/dL Calcium 9.0 (8.4-10.2) mg/dL Total Bilirubin 1.5 H (0.2-1.3) mg/dL AST 20 (17-59) IU/L ALT 26 (<50) IU/L Alkaline Phosphatase 73 (38-126) U/L Total Protein 7.4 (6.3-8.2) g/dL Albumin 4.2 (3.5-5.0) g/dL Globulin 3.2 (1.7-4.1) g/dL Albumin/Globulin Ratio 1.3 (1.0-2.8) Lipase 79 D (23-300) U/L MDM Narrative Medical decision making narrative: Patient arrives today with symptoms that are very consistent with his biliary colic. Labs were obtained however we will hold on a repeat right upper quadrant ultrasound. Did discuss the case with Dr. Watson who was on-call for General surgery. We will admit for surgical treatment of his known cholelithiasis/acute cholecystitis. Will treat his discomfort to see if his blood pressure improved. Patient aware of need for admission. Antibiotics started as well. Discharge Plan Departure Patient Disposition: Admitted As Inpatient Clinical Impression: Biliary colic, Hypertension Admit Date/Time: 09/08/22 23:27 Admit Provider: Andrew Watson
[2022-09-08] MEDS: SODIUM CHLORIDE 0.9% 1,000 ML 125 ML IV (23:24)
[2022-09-08] MEDS: HYDROMORPHONE 1 MG INJ IV (23:24)
[2022-09-08 23:25] LABS: Add Manual Diff / Slide Review NO; Basophils Absolute Auto 100 /uL (0-100); Basophils Percent Auto 0.5 % (0-2); Eosinophils Absolute Auto 400 /uL (0-450); Eosinophils Percent Auto 2.5 % (2-4); Hematocrit 43.7 % (41-53); Hemoglobin 15.4 g/dL (13.5-17.5); Lymphocytes Absolute Auto 1700 /uL (1100-4500); Lymphocytes Percent Auto 10.7 % (25-40); Mean Corpuscular HGB Conc 35.1 % (30-36); Mean Corpuscular Hemoglobin 29.5 PG (26-34); Mean Corpuscular Volume 83.9 fL (80-100); Monocytes Absolute Auto 1400 /uL (0-900); Monocytes Percent Auto 8.8 % (3-14); Neutrophils Absolute Auto 12300 /uL (1500-7000); Neutrophils Percent Auto 77.5 % (50-75); Platelet Count 137 X10^3/uL (150-400); Red Blood Cell Count 5.21 X10^6/uL (4.5-5.9); White Blood Cell Count 15.9 X10^3/uL (4.5-11.0)
[2022-09-08] MEDS: PIPERACILLIN/TAZO 4.5 GM in SODIUM CHLORIDE 0.9% 100 ML IV (23:25)
[2022-09-08 23:30] VITALS: BP 207/84; PULSE 64; O2SAT 95
[2022-09-08 23:35] LABS: Alanine Aminotransferase 26 IU/L (<50); Albumin 4.2 g/dL (3.5-5.0); Albumin Globulin Ratio 1.3 (1.0-2.8); Alkaline Phosphatase 73 U/L (38-126); Aspartate Aminotransferase 20 IU/L (17-59); BUN Creatinine Ratio 16.4 (6-22); Bilirubin Total 1.5 mg/dL (0.2-1.3); Blood Urea Nitrogen 21 mg/dL (9-20); Carbon Dioxide 28 mmol/L (22-32); Chloride 99 mmol/L (98-107); Estimated Glomerular Filt Rate > 60 mL/min (>60); Globulin 3.2 g/dL (1.7-4.1); Glucose 122 mg/dL (80-110); HEMOLYSIS < 15 (0-50); Lipase 79 U/L (23-300); Potassium 3.4 mmol/L (3.4-5.1); Sodium 138 mmol/L (137-145); Total Protein 7.4 g/dL (6.3-8.2)
[2022-09-08 23:55] LABS: COVID19 -Nasal RAPID Negative (Negative)
[2022-09-09] VITALS (15 sets, daily range): BP systolic 140–184; BP diastolic 67–81; PULSE 61–78; RESP 17–24; TEMP 36.4–36.9; O2SAT 91–100; BMI 32.3
[2022-09-09] MEDS: HYDROMORPHONE 0.5 MG INJ 1 MG IV ×3 (01:25→08:09)
[2022-09-09] MEDS: SODIUM CHLORIDE 0.9% 1,000 ML 125 ML IV ×3 (01:26→16:38)
[2022-09-09 03:21] LABS: MRSA (Nasal) PCR Not Detected (Not Detect)
[2022-09-09] MEDS: ONDANSETRON 4 MG/2 ML INJ IV ×4 (05:25→20:07)
--- NOTE | 2022-09-09 06:04 | PC.NURSE ---
Pt arrived to unit around 0100. Alert and oriented, on room air. Patient was in pain, received Dilaudid about one hour prior. Started IV fluids ordered, gave Dilaudid when able, patient currently sleeping in room comfortably.
--- NOTE | 2022-09-09 13:08 | CM.DANOTE ---
Patient is a 67 yo male who was admitted on 09/08/22 for Gallbladder issues/Pain. Pt has [employer] and [employer] for insurance and his PCP is Dr. Bryan Barr. EMR was reviewed. Per Surgeon, just met bedside with pt who had plans for likely Lap Josephine next week but pt had increasing pain and complications and admitted for IV-Abx and pain control and plan is surgery tomorrow. SW met bedside with pt and spouse and explained role and they confirm they live in [place] and both are active and independent at baseline and both drive and pt does not use DME for ambulation. They travel and have supportive local family. Pt denies any hx of HH or SNF and confirms his spouse is his DPOA. Pt states his pain is much better controlled at this time and he is hopeful to d/c home with spouse assist after surgery tomorrow and does not anticipate any needs and spouse is very attentive and supportive. Plan: SW to follow for plan of Lap Josephine tomorrow and pt progress to confirm plan of home via spouse POV and any further identified discharge planning needs. PEDRO PABLO Mitchell Discharge Planning/Care Management CM Discharge Assessment Start: 09/09/22 13:07 Freq: Status: Active Protocol: Document 09/09/22 13:07 BF (Rec: 09/09/22 13:08 [id number]) Discharge Planning Assessment Assigned Architectural Examiner PEDRO PABLO Voss DPOA/Assigned Designee Name spouse Advance Directives? Yes Advance Directives on File No History Provided By Patient,Significant Other, Medical Record Has Patient been admitted in last 30 No days? Prior Living Arrangements House Household Members spouse Type of transporation used prior to Drives own vehicle admit Independent with ADL's Yes Is patient alert and oriented? Yes Caregiver for Another No Barriers to Discharge No Discharge Plan Home Transportation Arrangement spouse bedside and will transport at d/c Referrals Initiated None needed Additional Comment Pending progress after surgery tomorrow Whiteboard Updated in Patient Room with Yes name and ext. # of Architectural Examiner Review Status In Process Please Provide Date Initial DC 09/09/22 Assessment Was Performed Next Review Type Continued Stay Review
[2022-09-09] MEDS: HYDROMORPHONE 1 MG INJ IV ×2 (13:19→19:14)
--- NOTE | 2022-09-09 18:18 | PM.HP.1 ---
History of Present Illness History of Present Illness Date Patient Seen: 09/09/22 Time Patient Seen: 11:30 Chief complaint: states galbladder attack Narrative: Mr. Irene is a 67-year-old male who presents to the emergency room with right upper quadrant pain. He has been diagnosed with acute cholecystitis in the past and has seen Dr. Miller in his office and scheduled for a laparoscopic cholecystectomy as of Monday this week. (today is Monday) he simply started having so much pain in the right upper quadrant that he felt that he could not wait and came to the emergency room. He does have leukocytosis and right upper quadrant pain. His total bilirubin is 1.5 with a little bit of elevation. His gallbladder ultrasound shows gallstones but is otherwise unremarkable. He has some mild baseline renal dysfunction and today his creatinine is 1.28. [facility] Medical History (Updated 09/09/22 @ 18:21 by Deborah Sears MD) Acute gastritis Coronary arteriosclerosis Headache, migraine History of COVID-19 (10/2021) HLD (hyperlipidemia) Hypertension Myocardial infarction (07/1993) Neuropathy RUQ abdominal pain Sleep apnea Social History marital status: household members: spouse lives independently: Yes occupational status: previously employed Smoking Status: Former smoker alcohol intake: current Meds Home Medications and Allergies Home Medications Medication Instructions Recorded Confirmed Type atorvastatin 80 mg tablet (Lipitor) 80 mg PO DAILY 07/22/19 09/09/22 History ascorbic acid (vitamin C) 500 mg 1,000 mg PO DAILY 09/01/22 09/09/22 History capsule aspirin 81 mg capsule 81 mg PO DAILY 09/01/22 09/09/22 History carvedilol 6.25 mg tablet 6.25 mg PO BID 09/01/22 09/09/22 History chlorthalidone 50 mg tablet 25 mg PO DAILY 09/01/22 09/09/22 History cholecalciferol (vitamin D3) 125 50 mcg PO DAILY 09/01/22 09/09/22 History mcg (5,000 unit) capsule esomeprazole magnesium 40 mg 40 mg PO DAILY 09/01/22 09/09/22 History capsule,delayed release (Nexium) gabapentin 100 mg capsule 100 mg PO BID 09/01/22 09/09/22 History losartan 100 mg tablet 100 mg PO DAILY 09/01/22 09/09/22 History valacyclovir 1 gram tablet 1,000 mg PO PRN PRN Breakout/flare 09/01/22 09/09/22 History zinc acetate 50 mg (zinc) capsule 50 mg PO DAILY 09/01/22 09/09/22 History (Galzin) sildenafil 100 mg tablet 100 mg PO PRN PRN Sexual Activity 09/09/22 09/09/22 History Allergies Allergy/AdvReac Type Severity Reaction Status Date / Time amoxicillin Allergy Intermediate Hives Verified 09/01/22 09:18 REI Inhibitors Allergy Unknown Swellling, Verified 09/09/22 09:52 angioedema Exam Vital Signs (past 8 hours): - 09/09/22 15:00 Temperature 98 F Pulse Rate 68 Respiratory Rate 17 Blood Pressure 140/68 Pulse Oximetry 97 Oxygen Flow Rate 0 Oxygen Delivery Method Room Air Oxygen Flow Rate 0 Const General: cooperative, healthy appearing and comfortable HENMT Head: normal to inspection Eyes General: appearance normal, both eyes and all related structures Resp Effort & Inspection: normal respiratory effort and able to speak in complete sentences Cardio Pulses: radial pulses present GI Palpation: soft and tender (Right upper quadrant) Neuro General: patient alert, patient awake and patient oriented x3 Objective Labs 09/08/22 23:12 09/08/22 23:12 Labs: Laboratory Results - last 24 hr 09/08/22 09/08/22 09/08/22 23:12 23:12 23:12 WBC 15.9 H D RBC 5.21 Hgb 15.4 Hct 43.7 MCV 83.9 MCH 29.5 MCHC 35.1 RDW 13.0 Plt Count 137 L Neut % (Auto) 77.5 H Lymph % (Auto) 10.7 L [place] % (Auto) 8.8 Eos % (Auto) 2.5 Baso % (Auto) 0.5 Neut # (Auto) 63105 H Lymph # (Auto) 1700 [place] # (Auto) 1400 H Eos # (Auto) 400 Baso # (Auto) 100 Sodium 138 Potassium 3.4 Chloride 99 Carbon Dioxide 28 BUN 21 H Creatinine 1.28 H Estimated GFR > 60 BUN/Creatinine Ratio 16.4 Glucose 122 H Calcium 9.0 Total Bilirubin 1.5 H AST 20 ALT 26 Alkaline Phosphatase 73 Total Protein 7.4 Albumin 4.2 Globulin 3.2 Albumin/Globulin Ratio 1.3 Lipase 79 D Nasal Screen MRSA (PCR) SARS-CoV-2 (PCR) 09/08/22 09/09/22 23:35 01:54 WBC RBC Hgb Hct MCV MCH MCHC RDW Plt Count Neut % (Auto) Lymph % (Auto) [place]min[place] % (Auto) Eos % (Auto) Baso % (Auto) Neut # (Auto) Lymph # (Auto) [place] # (Auto) Eos # (Auto) Baso # (Auto) Sodium Potassium Chloride Carbon Dioxide BUN Creatinine Estimated GFR BUN/Creatinine Ratio Glucose Calcium Total Bilirubin AST ALT Alkaline Phosphatase Total Protein Albumin Globulin Albumin/Globulin Ratio Lipase Nasal Screen MRSA (PCR) Not detected SARS-CoV-2 (PCR) Negative Assessment & Plan Assessment and plan (1) Acute cholecystitis due to biliary calculus: Status: Acute Assessment & Plan narrative: We will recheck total bilirubin tomorrow. Will check renal function as well and continue IV hydration. Treat with antibiotics and a low-fat gallbladder diet. NPO after midnight for probable laparoscopic cholecystectomy tomorrow.
[2022-09-09] MEDS: CIPROFLOXACIN 400 MG/200 ML PIGGYBACK 200 MG IV (18:33)
[2022-09-09] MEDS: metroNIDAZOLE 500 MG/100 ML PIGGYBACK 100 MG IV (18:53)
[2022-09-09] MEDS: LOSARTAN 50 MG TABLET 100 MG PO (19:14)
[2022-09-09] MEDS: carvediloL 3.125 MG TABLET 6.25 MG PO (20:08)
[2022-09-09] MEDS: GABAPENTIN 100 MG CAPSULE PO (20:09)
[2022-09-09] MEDS: ATORVASTATIN 20 MG TABLET 80 MG PO (20:09)
[2022-09-10] VITALS (42 sets, daily range): BP systolic 104–192; BP diastolic 42–88; PULSE 61–92; RESP 12–20; TEMP 36.4–37.4; O2SAT 90–96; BMI 32.3
--- NOTE | 2022-09-10 | PATH_ITS ---
[facility] Accession Number: [id number] No. of containers..01 Tissue . 01 Material submitted: . gallbladder - GALLBLADDER . 01 Diagnosis: Gallbladder, Cholecystectomy: Acute hemorrhagic cholecystitis and cholelithiasis. MRV 09/16/2022 1223 Local . 01 Electronically signed: . Genia Valenzuela MD, Pathologist NPI- [id number] . 01 Gross description: . The specimen is received in formalin labeled with the patient's name, , and gallbladder, and consists of a fragmented gallbladder reapproximated to measure 9.8 x 4.9 x 3.3 cm. The serosa is brown and roughened while the hepatic surface is significant for a full thickness defect measuring 4.5 cm in greatest dimension. The presumed cystic duct margin is received patent, is inked blue, and no pericystic lymph node is identified. The lumen contains a small amount of pritchett-brown semi-solid material possibly consistent with exudate. A green faceted calculus is identified within the container measuring 1.3 cm in greatest dimension, and multiple black roughened calculi are identified within the cystic duct measuring up to 0.1 cm in greatest dimension. The mucosa is brown and velvety with no pinpoint yellow areas of discoloration, polyps, or lesions identified. The alex average 0.4 cm thick, and outside sales representative insurance sections to include the presumed cystic duct margin and full-thickness sections are submitted in cassettes A1-A2. ([id number]) /MRV 09/14/2022 1750 Local . 01 Pathologist provided ICD-10: K81.0 . 01 CPT . 200468 Specimen Comment: A courtesy copy of this report has been sent to [facility] Pathology Performed at: [facility] [place] [facility] [address], [place], [place] [id number] MD Hardik Brothers MD Phone: [phone]
[2022-09-10] MEDS: metroNIDAZOLE 500 MG/100 ML PIGGYBACK 100 MG IV (02:20)
[2022-09-10] MEDS: ONDANSETRON 4 MG/2 ML INJ IV (03:36)
[2022-09-10] MEDS: HYDROMORPHONE 1 MG INJ IV (03:36)
[2022-09-10 05:31] LABS: Alanine Aminotransferase 19 IU/L (<50); Albumin 3.6 g/dL (3.5-5.0); Albumin Globulin Ratio 1.2 (1.0-2.8); Alkaline Phosphatase 62 U/L (38-126); Aspartate Aminotransferase 18 IU/L (17-59); Bilirubin Unconjugated 0.7 mg/dL (0.0-1.1); Blood Urea Nitrogen 19 mg/dL (9-20); Calcium 8.5 mg/dL (8.4-10.2); Carbon Dioxide 26 mmol/L (22-32); Chloride 103 mmol/L (98-107); Estimated Glomerular Filt Rate > 60 mL/min (>60); Globulin 3.1 g/dL (1.7-4.1); Glucose 110 mg/dL (80-110); HEMOLYSIS 16 (0-50); Potassium 3.3 mmol/L (3.4-5.1); Sodium 138 mmol/L (137-145); Total Protein 6.7 g/dL (6.3-8.2)
[2022-09-10] MEDS: CIPROFLOXACIN 400 MG/200 ML PIGGYBACK 200 MG IV (06:19)
[2022-09-10 06:24] LABS: Hematocrit 40.2 % (41-53); Hemoglobin 13.9 g/dL (13.5-17.5); Mean Corpuscular HGB Conc 34.6 % (30-36); Mean Corpuscular Hemoglobin 29.3 PG (26-34); Mean Corpuscular Volume 84.7 fL (80-100); Platelet Count 123 X10^3/uL (150-400); Red Blood Cell Count 4.74 X10^6/uL (4.5-5.9); White Blood Cell Count 10.5 X10^3/uL (4.5-11.0)
[2022-09-10] MEDS: LOSARTAN 50 MG TABLET 100 MG PO (08:47)
[2022-09-10] MEDS: CHLORTHALIDONE 25 MG TABLET PO (08:47)
[2022-09-10] MEDS: carvediloL 3.125 MG TABLET 6.25 MG PO ×2 (08:48→20:40)
[2022-09-10] MEDS: LACTATED RINGERS 1,000 ML 120 ML IV ×2 (11:37→13:55)
[2022-09-10] MEDS: EPINEPHrine 1 MG/ML IV (12:26)
[2022-09-10] MEDS: BUPIVACAINE 0.5% (PF) 10 ML VIAL INJ (12:27)
--- NOTE | 2022-09-10 12:29 | SUR.OPER ---
Supine on padded OR bed, head on pillow, safety belt at thigh, left arm padded and tucked at side. Right arm secured on padded arm board <90 degrees abduction. Legs uncrossed. Padded footboard in place. Tape over blanket to secure lower legs.
[2022-09-10] MEDS: fentaNYL 100 MCG/2 ML INJ IV ×4 (18:15→18:35)
[2022-09-10] MEDS: hydrOXYzine 50 MG/ML INJ 25 MG IM (18:18)
--- NOTE | 2022-09-10 18:19 | SUR.PHASEI ---
Received to PACU after general anesthesia. Report from THOR Dey and Richard Morrison CRNA. Oral airway in place. No further airway support required.
--- NOTE | 2022-09-10 18:57 | PM.OP.1 ---
Operative Date/Time/Diagnoses Date of procedure: 09/10/22 Pre-op diagnosis: Acute on chronic cholecystitis Post-op diagnosis: same Procedure & Clinicians Procedure: Laparoscopic cholecystectomy Same procedure as scheduled: Yes Indications: Acute on chronic cholecystitis Surgeon: Deborah Sears Click Yes if Unassisted: Yes Anesthesia Type: General Operative Notes Findings: The gallbladder was very very inflamed in with chronic inflammatory tissues. Specimen(s): none sent (Gallbladder) Procedure in detail: Patient was taken to the operating room placed supine on the operating room table. A time-out was performed. Preoperative antibiotics were administered and bilateral SCDs were in place. General endotracheal anesthesia was induced. The abdomen was then prepped and draped in the usual sterile fashion. Local anesthetic was infused above the umbilicus and an incision made with an 11 blade scalpel through the skin carried through the subcutaneous tissues with electrocautery and the abdomen was entered by elevating the anterior abdominal wall with 2 Lorena retractors and entering it sharply with an 11 blade scalpel. The Jennie trocar was then placed under direct visualization. The laparoscopic camera was introduced and the abdomen was inspected there was no evidence of entry injury. Next the accessory trocars were placed in the usual fashion under direct visualization after infusing local anesthetic. These 5 mm port sites were placed in the subxiphoid midclavicular and lateral positions subcostally. Immediately it was apparent that the gallbladder was markedly inflamed. It was difficult to grasp and very reddened. A retractor was used to grasp the dome of the gallbladder and retracted cephalad. Omental adhesions were taken down off the gallbladder wall. Next I began to search for a critical view. Initially, high and anterior on the gallbladder wall I ligated what I believe to be the cystic artery inadvertently. The bleeding from this artery was stopped and the artery was clipped with 2 laparoscopic clip appliers. During the course of retracting the gallbladder dome cephalad the gallbladder was entered spilling bile as well. A suction supervisor steel division was used to try to delineate the anatomy. And there was a large pendulous portion of the gallbladder very distal near the cystic duct. In fact was very difficult to identify the cystic duct itself because of this pendulous portion. I believe I did see the common bile duct below the level of where we were dissecting, entering directly into the liver. There was dense chronic scar tissue all around the critical view area. Dissection in this area took hours. As I was dissecting on the lateral posterior side of the gallbladder a injury to the liver bed which was fairly close to the cystic duct level began to bleed. This bleeding was controlled with Surgicel. I turned my attention to the left anterior side of the gallbladder at that time to allow this liver edge some time for hemostasis. I continued to work my way around in this area using a combination of peanut blunt laparoscopic dissectors and a Saludlynd dissector. Electrocautery was used on occasion because the tissue was very dense. After a long time working on this I decided I needed to take down the dome of the gallbladder and worked my way in this fashion down towards the cystic duct. So I began to liberate the gallbladder from the gallbladder wall fossa starting at the dome of the gallbladder and working my way towards the cystic duct. During this process I entered the gallbladder wall once more and there was bleeding from the liver bed as well because it was quite difficult even this high to see the planes due to the amount of chronic inflammation. Nonetheless persisted to free the gallbladder from the gallbladder fossa. I cleared the gallbladder as far towards the direction of the cystic duct as I felt comfortable doing though I never saw a very thin small cystic duct I was able to get to Prolene laparoscopic loops around the neck of the gallbladder. I then used the laparoscopic scissors to ligate the remainder of the gallbladder. Some how during this process a large amount of bleeding occurred posterior to the neck of the gallbladder. I was able to control this by placing a lap sponge into the abdomen and holding pressure for 5 minutes and then suctioned and irrigating long enough to observe the bleeding vessel. I was able to grab this vessel and place a laparoscopic clip public relations associate across it. This stopped the bleeding. Next I evaluated the cystic duct stump and found that during the process both of the Prolene sutures previously placed were no longer in place. Therefore I was able to grab the stump with a Ranjana dissector and replace 2 Prolene sutures over the stump securely. Next I replaced the camera into the subxiphoid port and removed the remainder of the gallbladder and the sections of gallbladder wall which had been from the gallbladder specimen as well as some large gallstones and some clots and laparoscopic clips into the Endo-Catch bag. Next I replaced the camera and suctioned and irrigated the abdomen double checking the hemostasis and the security of the Prolene sutures, and clips. Everything did look hemostatic and secure. I placed a 10 LUCY flat drain into the gallbladder fossa overlying the cystic duct stump. The drain was removed through the lateral most port site. The accessory trocars were then removed under direct visualization and finally the umbilical trocar was removed. The fascia of the umbilical incision was closed with 2 previously placed interrupted 0 Vicryl sutures. The skin was closed with 4-0 Monocryl and dressed with skin glue. Patient tolerated the procedure well and went in good condition to the postoperative care unit EBL was 100 cc Post-operative Condition: stable Disposition: PACU
--- NOTE | 2022-09-10 19:04 | SUR.PHASEI ---
Pt transferred to room 227 with belongings bag x1. Transferred without O2. Report given to and received in room by THOR Kat. O2 sats on arrival to room = 94%. Pt family in room with pt.
[2022-09-10] MEDS: GABAPENTIN 100 MG CAPSULE PO (20:41)
[2022-09-10] MEDS: TRAMADOL 50 MG TABLET PO (20:47)
[2022-09-10] MEDS: LABETALOL 20 MG/4 ML SYRINGE 5 MG IV (23:56)
[2022-09-11] VITALS (28 sets, daily range): BP systolic 161–193; BP diastolic 70–83; PULSE 67–88; RESP 18–69; TEMP 37–37.1; O2SAT 91–95
--- NOTE | 2022-09-11 05:23 | PC.NURSE ---
0500- Patient was initially very loopy but through the shift has cleared. UOP 1400 this shift. Patient has frequent urination between 125-200cc at a time. LUCY is putting out dark red blood 60cc this shift. Patient assisted oob to BSC x1 and is passing Gas but no stool as of yet. Patient tolerated oob with assist of one without any problems, able to follow cueing and appropriately asking clarifying questions. Medicated x1 for pain. Taking po will without any nausea. Patient does state his throat and mouth are sore. Abdomen puncture sites are intact, abdomen is distended but soft. Patient is afebrile. Will monitor closely.
[2022-09-11] MEDS: PANTOPRAZOLE DR 40 MG TABLET PO (06:00)
[2022-09-11] MEDS: carvediloL 3.125 MG TABLET 6.25 MG PO (08:20)
[2022-09-11] MEDS: CHOLECALCIFEROL (VITAMIN D3) 1,000 UNIT TABLET 2000 UNIT PO (08:20)
[2022-09-11] MEDS: ATORVASTATIN 20 MG TABLET 80 MG PO (08:24)
[2022-09-11] MEDS: GABAPENTIN 100 MG CAPSULE PO (08:27)
[2022-09-11] MEDS: CHLORTHALIDONE 25 MG TABLET PO (08:27)
[2022-09-11] MEDS: LOSARTAN 50 MG TABLET 100 MG PO (08:27)
[2022-09-11] MEDS: ASCORBIC ACID 500 MG TABLET 1000 MG PO (08:27)
[2022-09-11] MEDS: LABETALOL 20 MG/4 ML SYRINGE 5 MG IV (09:38)
--- NOTE | 2022-09-11 12:42 | P.DS_ITS ---
History of Present Illness History of Present Illness Chief complaint: states galbladder attack Narrative: Mr. Irene is a 67-year-old male who presents to the emergency room with right upper quadrant pain. He has been diagnosed with acute cholecystitis in the past and has seen Dr. Miller in his office and scheduled for a laparoscopic cholecystectomy as of Monday this week. (today is Monday) he simply started having so much pain in the right upper quadrant that he felt that he could not wait and came to the emergency room. He does have leukocytosis and right upper quadrant pain. His total bilirubin is 1.5 with a little bit of elevation. His gallbladder ultrasound shows gallstones but is otherwise unremarkable. He has some mild baseline renal dysfunction and today his creatinine is 1.28. Discharge Providers Provider Date of admission: 09/08/22 23:27 Discharge Date: 09/11/22 Primary care physician: Bryan Barr MD Consults: 09/08/22 23:25 Consult to General Surgery Urgent Comment: Consulting Provider: Andrew Watson Reason for consultation: Admission Has provider been notified: Yes Discharge provider: Deborah Sears MD Summary Hospital Course Discharge Diagnosis: Acute cholecystitis Hospital Course: Patient was admitted to the hospital and underwent laparoscopic cholecystectomy on his 2nd hospital day. On presentation he had a mild leukocytosis and mild hyperbilirubinemia that was resolved by hospital day 2 prior to operative intervention. The surgery was complicated and difficult and there was some more than average intraoperative blood loss but overall no complication was observed. He did have a operative LUCY drain placed in the right upper quadrant and was sent home on postoperative day [address] with the drain in place. He was given instructions to come to the clinic on Monday to have the drain removed. Status at Discharge Cognitive/behavioral status at discharge: oriented Functional status at discharge: independent ambulation Time Spent with Patient Time spent: Less than 30 minutes Exam Vital Signs (past 8 hours): - 09/11/22 08:20 09/11/22 08:27 09/11/22 08:28 Temperature 98.6 F Pulse Rate 70 70 67 Respiratory Rate 20 Blood Pressure 193/79 H 193/79 H 193/79 H Pulse Oximetry 93 Oxygen Delivery Method 09/11/22 07:00 09/11/22 04:59 09/11/22 05:00 Temperature Pulse Rate 68 72 Respiratory Rate Blood Pressure Pulse Oximetry 93 93 Oxygen Delivery Method Room Air 09/11/22 05:30 09/11/22 06:00 09/11/22 06:30 Temperature Pulse Rate 68 68 69 Respiratory Rate Blood Pressure Pulse Oximetry 92 92 94 Oxygen Delivery Method 09/11/22 07:00 09/11/22 07:30 09/11/22 08:00 Temperature Pulse Rate 71 72 74 Respiratory Rate Blood Pressure Pulse Oximetry 95 94 94 Oxygen Delivery Method 09/11/22 08:24 09/11/22 08:24 09/11/22 08:25 Temperature Pulse Rate 69 Respiratory Rate Blood Pressure 193/79 H Pulse Oximetry 93 93 Oxygen Delivery Method 09/11/22 09:14 09/11/22 09:15 09/11/22 09:34 Temperature Pulse Rate Respiratory Rate Blood Pressure 192/81 H 188/83 H 177/78 H Pulse Oximetry Oxygen Delivery Method 09/11/22 09:34 09/11/22 09:38 09/11/22 09:35 Temperature Pulse Rate 69 70 Respiratory Rate 69 H Blood Pressure 177/78 H 177/78 H Pulse Oximetry 93 92 Oxygen Delivery Method 09/11/22 10:31 09/11/22 10:08 Temperature Pulse Rate 80 Respiratory Rate Blood Pressure 161/70 H 161/70 H Pulse Oximetry Oxygen Delivery Method Oxygen Delivery Method Room Air Oxygen Flow Rate 1 Narrative Exam Narrative: Patient in the bathroom when I came to examine him today. But according to nursing his wounds are clean dry and intact and his LUCY drain output is serosanguineous and not green in any way patient is doing really well tolerating regular diet and wants to be discharged. Objective Labs 09/10/22 06:15 09/10/22 04:18 [facility] Medical History (Updated 09/09/22 @ 18:21 by Deborah Sears MD) Acute gastritis Coronary arteriosclerosis Headache, migraine History of COVID-19 (10/2021) HLD (hyperlipidemia) Hypertension Myocardial infarction (07/1993) Neuropathy RUQ abdominal pain Sleep apnea Social History marital status: household members: spouse lives independently: Yes occupational status: previously employed Smoking Status: Former smoker alcohol intake: current Discharge Assessment & Plan Assessment and Plan Assessment: Postop day 1 status post laparoscopic cholecystectomy. Plan of Treatment: Please see discharge instructions. Discharge Plan Discharge Plan Patient Disposition: Home Discharge orders & Medications Prescriptions: New tramadol 50 mg Tablet 50 mg PO QID PRN (Reason: Pain, Moderate (4-6)) Qty: 20 0RF Rx Instructions: May take 1-2 tabs as needed for pain. docusate sodium [Colace] 100 mg capsule 100 mg PO BID Qty: 30 0RF Rx Instructions: take while taking pain medication to prevent constipation. Continued cholecalciferol (vitamin D3) 125 mcg (5,000 unit) capsule 50 mcg PO DAILY chlorthalidone 50 mg tablet 25 mg PO DAILY losartan 100 mg tablet 100 mg PO DAILY carvedilol 6.25 mg tablet 6.25 mg PO BID esomeprazole magnesium [Nexium] 40 mg capsule,delayed release(DR/EC) 40 mg PO DAILY gabapentin 100 mg capsule 100 mg PO BID ascorbic acid (vitamin C) 500 mg capsule 1,000 mg PO DAILY Galzin 50 mg (zinc) capsule 50 mg PO DAILY valacyclovir 1 gram tablet 1,000 mg PO PRN PRN (Reason: Breakout/flare) atorvastatin [Lipitor] 80 mg Tablet 80 mg PO DAILY aspirin 81 mg capsule 81 mg PO DAILY Qty: 30 0RF Rx Instructions: Restart in 5 days. sildenafil 100 mg Tablet 100 mg PO PRN PRN (Reason: Sexual Activity) Rx Instructions: administer 30 minutes to 4 hours before activity Follow up/Referrals: Deborah Sears MD [Physician] - (Please call with any questions or concerns. Call the office on Monday to schedule a follow up appointment. On Monday, please come the office for drain removal. You can come any time that works for you, but just call the office and tell them when you would like to come. ) Bryan Barr MD [Primary Care Provider] - Diet/Activity/Treatments Diet: Diet as Tolerated and Regular Activity: No lifting greater than 30 lb for 4 weeks after surgery. Do not do any strenuous activity. Normal activity such as walking outside and climbing stairs, is ok. If you notice pain, stop. You may drive when you no longer are taking Narcotic pain medication. Skin/Wound/Dressing Care Report to your healthcare provider any signs of infection, such as:: chills, fever, night sweats, increased pain, unusual drainage and unusual redness Dressing: Ok to shower, let water run over it, don't scrub. No ointments. Pat dry afterwards. No tub baths, and don't soak underwater, for 2 weeks. There are Steristrips covering the wound but also stitches under the skin which will dissolve. Other wound treatment: LUCY bulb care per RN teaching. Please call the office right away if you notice anything GREEN or GREENISH coming from that LUCY bulb! Visit Report/Discharge Packet Instructions: DI for Open Cholecystectomy, DI for Laparoscopy, DI for Prescrip tion Opioid Use, [facility]: Wound Care Stand Alone Forms: Patient Portal/API, Stroke Signs & Symptoms, Surgery Discharge Discharge Data Primary Care Provider: Bryan Barr Attending Provider: Andrew Watson Admit Date/Time: 09/08/22 23:27 Discharges patient from system. Discharge Date/Time: 09/11/22 13:04
--- NOTE | 2022-09-11 14:06 | CM.DPC ---
DCP Discharge Home Per Surgeon, pt tolerated procedure well and pain seems well controlled and pt has been able to ambulate and tolerate general diet and had bowel tones and flatus and small bm and medically stable to d/c home today with outpt f/u. No identified barriers to discharge. Plan: Patient to d/c home via spouse POV today and outpt f/u and pt quite independ and active at baseline and no further SW needs at this time. PEDRO PABLO Mitchell
== END 2022-09-11 13:04 | disposition home or self-care (01) ==
LOC: ED 23:23 → ICU 09-09 07:39 → AC 09-09 14:35 → ICU 09-09 14:35
PROVIDERS: Surgery; Admitting Provider Surgery; Emergency Provider Emergency Medicine; PCP Family Medicine; Referring Provider Emergency Medicine; Visit Provider Surgery
PROC: 0FT44ZZ Resection of Gallbladder, Percutaneous Endoscopic Approach (ICD-10-PCS; CPT 47562; principal; 2022-09-10 11:45)
DX: K80.12 Calculus of gallbladder with acute and chronic cholecystitis without obstruction (principal); I10 Essential (primary) hypertension; Z20.822 Contact with and (suspected) exposure to COVID-19; K80.50 Calculus of bile duct without cholangitis or cholecystitis without obstruction; Z87.891 Personal history of nicotine dependence
CPT/HCPCS: 47562; 36415; 71045; 76705; 80048; 80053; 80076; 82550; 82553; 83690; 84484; 85025; 85027; 87635; 87797; 93005; 96361; 96365; 96375; 96376; 99222; 99284; C9803; G0378; J0171; J0744; J1100; J1170; J1885; J2405; J2543; J2704; J3010; J3410

== ENCOUNTER 2022-09-14 10:35 | Emergency (ER) | payer MEDICARE, OTHER, SELFPAY ==
[2022-09-09 01:29] VITALS: BMI 32.3
[2022-09-14] VITALS (8 sets, daily range): BP systolic 129–153; BP diastolic 62–70; PULSE 67–75; RESP 14–22; TEMP 36.3; O2SAT 93–97; BMI 30.7
--- NOTE | 2022-09-14 10:54 | DI.RAD.S_ITS ---
PROCEDURE: XR CHEST 1V INDICATIONS: Shortness of breath TECHNIQUE: One view of the chest was acquired. COMPARISON: [facility], CR, XR CHEST 1V, 09/07/2022, 1:54. FINDINGS: Surgical changes and devices: Right upper quadrant drain present. Lungs and pleura: Streaky bibasilar airspace opacities, probably atelectasis. Mediastinum: Mediastinal contours appear normal. Heart size is normal. Bones and chest wall: No suspicious bony lesions. Overlying soft tissues appear unremarkable. Elevation of the right hemidiaphragm. IMPRESSION: Streaky bibasilar airspace opacities, likely atelectasis. Elevation of the right hemidiaphragm stable from prior. Dictated by: Tobi Francisco M.D. on 09/14/2022 at 11:32 Approved by: Tobi Francisco M.D. on 09/14/2022 at 11:33
[2022-09-14 11:09] LABS: Add Manual Diff / Slide Review NO; Basophils Absolute Auto 100 /uL (0-100); Basophils Percent Auto 0.8 % (0-2); Eosinophils Absolute Auto 500 /uL (0-450); Eosinophils Percent Auto 4.5 % (2-4); Hematocrit 43.4 % (41-53); Hemoglobin 14.9 g/dL (13.5-17.5); Lymphocytes Absolute Auto 1500 /uL (1100-4500); Lymphocytes Percent Auto 13.7 % (25-40); Mean Corpuscular HGB Conc 34.3 % (30-36); Mean Corpuscular Hemoglobin 29.3 PG (26-34); Mean Corpuscular Volume 85.5 fL (80-100); Monocytes Absolute Auto 1000 /uL (0-900); Neutrophils Absolute Auto 7900 /uL (1500-7000); Platelet Count 246 X10^3/uL (150-400); Red Blood Cell Count 5.08 X10^6/uL (4.5-5.9); Red Cell Distribution Width 12.9 % (11.6-14.8)
[2022-09-14 11:18] LABS: INR 1.3 (0.9-1.3); Prothrombin Time 14.4 SECONDS (10.1-12.7)
[2022-09-14 11:25] LABS: Alanine Aminotransferase 46 IU/L (<50); Albumin 4.1 g/dL (3.5-5.0); Albumin Globulin Ratio 1.2 (1.0-2.8); Alkaline Phosphatase 64 U/L (38-126); Aspartate Aminotransferase 29 IU/L (17-59); Blood Urea Nitrogen 18 mg/dL (9-20); Calcium 9.2 mg/dL (8.4-10.2); Carbon Dioxide 26 mmol/L (22-32); Chloride 100 mmol/L (98-107); Estimated Glomerular Filt Rate > 60 mL/min (>60); Globulin 3.5 g/dL (1.7-4.1); Glucose 132 mg/dL (80-110); HEMOLYSIS 33 (0-50); Potassium 3.5 mmol/L (3.4-5.1); Sodium 137 mmol/L (137-145); Total Protein 7.6 g/dL (6.3-8.2)
[2022-09-14 11:37] LABS: NT-proBNP (BNP-Adult 18+) 148 pg/mL (<125); Troponin I < 0.012 ng/mL (0.01-0.034)
--- NOTE | 2022-09-14 11:56 | ED_ITS ---
HPI - Recheck/Abnormal Lab/Rx <Abi Collier PA-C - Last Filed: 09/14/22 17:19> General Chief Complaint: Recheck/Abnormal Lab/Rx Stated Complaint: gallbladder surgery 09/10, post op issues Time Seen by Provider: 09/14/22 10:56 Source: patient Mode of arrival: Ambulatory History of Present Illness HPI narrative: 67-year-old male presents with his with concern for postop problems. Patient states that he is concerned about having some shortness of breath that has been intermittent and worse with exertion since his surgery, also concerned because his surgeon advised him to come in for further evaluation today because when he was seen in clinic yesterday by another surgeon they noted he had bile from his Reymundo-Ragsdale drain. Patient states regarding his shortness of breath that he 1st noticed it when he was ambulating around the floor after his surgery and it has been intermittent since he has been home. He did state he went for a fairly long walk yesterday and did okay at times feel short of breath and at times does not. This morning he did feel somewhat short of breath but he says now ?I feel better?. His has been keeping track of the amount from his LUCY drain and states there was 40 mL in a 12 hour. Yesterday and 70 mL in the next 12 hours. She last drank this morning around 8:00 a.m. and they are about 40 mils present now. He has had a mild cough but states it has not been p roductive, he states he has had some abdominal pain since the surgery but it is really not bad he is not noticed any increased bloating abdominal pain or change in his appetite or out go. He has been having normal bowel movements notes sometimes some gas but this is relieved after bowel movement. He has not felt dizzy, lightheaded, chest pain, palpitations, productive cough, hemoptysis, fevers, chills, leg pain or swelling or any other symptoms. Related Data Home Medications Medication Instructions Recorded Confirmed atorvastatin 80 mg tablet (Lipitor) 80 mg PO DAILY 07/22/19 09/13/22 ascorbic acid (vitamin C) 500 mg 1,000 mg PO DAILY 09/01/22 09/13/22 capsule carvedilol 6.25 mg tablet 6.25 mg PO BID 09/01/22 09/13/22 chlorthalidone 50 mg tablet 25 mg PO DAILY 09/01/22 09/13/22 cholecalciferol (vitamin D3) 125 50 mcg PO DAILY 09/01/22 09/13/22 mcg (5,000 unit) capsule esomeprazole magnesium 40 mg 40 mg PO DAILY 09/01/22 09/13/22 capsule,delayed release (Nexium) gabapentin 100 mg capsule 100 mg PO BID 09/01/22 09/13/22 losartan 100 mg tablet 100 mg PO DAILY 09/01/22 09/13/22 valacyclovir 1 gram tablet 1,000 mg PO PRN PRN Breakout/flare 09/01/22 09/13/22 zinc acetate 50 mg (zinc) capsule 50 mg PO DAILY 09/01/22 09/13/22 (Galzin) sildenafil 100 mg tablet 100 mg PO PRN PRN Sexual Activity 09/09/22 09/13/22 Previous Rx's Medication Instructions Recorded aspirin 81 mg capsule 81 mg PO DAILY #30 caps 09/11/22 docusate sodium 100 mg capsule 100 mg PO BID #30 caps 09/11/22 (Colace) tramadol 50 mg tablet 50 mg PO QID PRN Pain, Moderate 09/11/22 (4-6) #20 tabs Allergies Allergy/AdvReac Type Severity Reaction Status Date / Time amoxicillin Allergy Intermediate Hives Verified 09/14/22 10:51 REI Inhibitors Allergy Unknown Swellling, Verified 09/14/22 10:51 angioedema Review of Systems <Abi Collier PA-C - Last Filed: 09/14/22 17:19> Review of Systems Narrative: See HPI Patient History <Abi Collier PA-C - Last Filed: 09/14/22 17:19> Medical History Acute gastritis Coronary arteriosclerosis Headache, migraine History of COVID-19 (10/2021) HLD (hyperlipidemia) Hypertension Myocardial infarction (07/1993) Neuropathy RUQ abdominal pain Sleep apnea Social History marital status: household members: spouse lives independently: Yes occupational status: previously employed Smoking Status: Former smoker alcohol intake: current Smoking Status: Former smoker alcohol intake frequency: holidays/special occasions only Alcohol type: beer Substance Use Type: does not use Exam <Abi Collier PA-C - Last Filed: 09/14/22 17:19> Narrative Exam Narrative: GENERAL: 67 year old patient appears stated age. Well-developed patient, in mild distress. HEAD: Atraumatic. Normocephalic. EYES: Pupils equal round and reactive. Extraocular motions intact. No scleral icterus. No injection or drainage. ENT: Nose without bleeding, purulent drainage. Throat without erythema, tonsillar hypertrophy or exudate. Airway patent. NECK: Trachea midline. Non tender CARDIOVASCULAR: Regular rate and rhythm without murmurs, gallops, or rubs. RESPIRATORY: Clear to auscultation. Breath sounds equal bilaterally. No wheezes, rales, or rhonchi. GASTROINTESTINAL: Abdomen soft, moderately protuberant, patient has well healing laparoscopic surgical scars consistent with recent cholecystectomy, also has Reymundo-Ragsdale drain from the right upper quadrant/abdomen patient is generally nontender does have some tenderness in the region around the drain that is mild. Otherwise Non-tender, nondistended, no CVA tenderness. EXTREMITIES: No edema or joint tenderness. BACK: Nontender without deformity or crepitance. No flank tenderness. NEURO: AOx3. SKIN: No rash or erythema of visible areas Initial Vital Signs Initial Vital Signs: Vital Signs Temperature 97.3 F L 09/14/22 10:51 Pulse Rate 75 09/14/22 10:51 Respiratory Rate 15 09/14/22 10:51 Blood Pressure 153/70 H 09/14/22 10:51 Pulse Oximetry 97 09/14/22 10:51 Oxygen Delivery Method Room Air 09/14/22 10:51 <Bryan Prajapati MD - Last Filed: 09/14/22 20:22> Initial Vital Signs Initial Vital Signs: Vital Signs Temperature 97.3 F L 09/14/22 10:51 Pulse Rate 75 09/14/22 10:51 Respiratory Rate 15 09/14/22 10:51 Blood Pressure 153/70 H 09/14/22 10:51 Pulse Oximetry 97 09/14/22 10:51 Oxygen Delivery Method Room Air 09/14/22 10:51 Scores <Abi Collier PA-C - Last Filed: 09/14/22 17:19> Wells' Criteria for PE Clinical signs and symptoms of DVT: No PE is #1 Dx or equally likely: Yes Heart rate > 100: No Immobilization at least 3 days or surg in previous 4 weeks: Yes History of PE or DVT: No Hemoptysis: No Malignancy w/Treatment within 6 months or palliative: No Wells' PE Score total: 4.5 <Bryan Prajapati MD - Last Filed: 09/14/22 20:22> Wells' Criteria for PE Wells' PE Score total: 4.5 Course <Abi Collier PA-C - Last Filed: 09/14/22 17:19> Course Course Narrative: Did consult attending physician Dr. Prajapati regarding this patient. He does feel most likely we should pursue possible PE given patient's report of shortness of breath intermittently since surgery. Does recommend a dimer. We discussed if this is negative we likely may not pursue PE symptoms have been mild. However if this is positive will likely pursue PE study patient's agreement. He does not have concerns regarding the patients LUCY drain. 1333 Dr. Sears, surgeon andrew by to check on her patient and needs a HIDA to eval bile leak, but would prefer an ERCP. Which we cannot get here. If it's not the CBD it might be possible to do something laparascopically. 1358 Dr Sears ahs spoken with current senior health consultant surgeon Damon and they feel that pursuing a HIDA today is not necessary given suspicion that this is a very small bile leak that will likely resolve on its own. Dr. Sears states she is okay with cancelling this study and will see pt in clinic on Monday as planned 14:[address] Prajapati did speak with nuclear medicine again and they understand that we desire cancel the order for HIDA. Did recheck with the patient and he is agreeable to having a CT study done to evaluate for pulmonary embolism. This is ordered. 1425 Orders Ordered: ED Orders 09/14/22 14:28 CT angio chest PE protocol Stat Vital Signs Vital signs: Vital Signs - 8 hr 09/14/22 16:21 09/14/22 14:52 09/14/22 14:52 Pulse Rate 67 67 Respiratory Rate 14 22 Blood Pressure 134/65 142/64 H Pulse Oximetry 95 95 Oxygen Delivery Method Room Air Oxygen Flow Rate 09/14/22 15:00 09/14/22 15:00 09/14/22 15:20 Pulse Rate 69 71 Respiratory Rate 18 22 Blood Pressure 130/62 Pulse Oximetry 94 94 Oxygen Delivery Method Room Air Oxygen Flow Rate 2 09/14/22 15:20 09/14/22 15:30 09/14/22 16:04 Pulse Rate 68 69 Respiratory Rate 21 17 Blood Pressure 129/63 Pulse Oximetry 93 96 Oxygen Delivery Method Oxygen Flow Rate 09/14/22 16:05 09/14/22 16:05 Pulse Rate 68 Respiratory Rate Blood Pressure 134/65 Pulse Oximetry 96 Oxygen Delivery Method Oxygen Flow Rate <Bryan Prajapati MD - Last Filed: 09/14/22 20:22> Orders Ordered: ED Orders 09/14/22 14:28 CT angio chest PE protocol Stat Vital Signs Vital signs: Vital Signs - 8 hr 09/14/22 16:21 09/14/22 14:52 09/14/22 14:52 Pulse Rate 67 67 Respiratory Rate 14 22 Blood Pressure 134/65 142/64 H Pulse Oximetry 95 95 Oxygen Delivery Method Room Air Oxygen Flow Rate 09/14/22 15:00 09/14/22 15:00 09/14/22 15:20 Pulse Rate 69 71 Respiratory Rate 18 22 Blood Pressure 130/62 Pulse Oximetry 94 94 Oxygen Delivery Method Room Air Oxygen Flow Rate 2 09/14/22 15:20 09/14/22 15:30 09/14/22 16:04 Pulse Rate 68 69 Respiratory Rate 21 17 Blood Pressure 129/63 Pulse Oximetry 93 96 Oxygen Delivery Method Oxygen Flow Rate 09/14/22 16:05 09/14/22 16:05 Pulse Rate 68 Respiratory Rate Blood Pressure 134/65 Pulse Oximetry 96 Oxygen Delivery Method Oxygen Flow Rate MDM - Recheck/Abnormal Lab/Rx <Abi Collier PA-C - Last Filed: 09/14/22 17:19> Differential Diagnosis Differential diagnosis: Likely encounter for wound recheck and other (Postop bile leak, pulmonary embolism, atelectasis, PNA) Medical Records Attestation: I reviewed the patient's medical records. Lab Data Attestation: I reviewed the patient's lab results. 09/14/22 11:00 09/14/22 11:00 Labs: Lab Results 09/14/22 09/14/22 09/14/22 Range/Units 11:00 11:00 11:00 WBC 11.0 (4.5-11.0) X10^3/uL RBC 5.08 (4.5-5.9) X10^6/uL Hgb 14.9 (13.5-17.5) g/dL Hct 43.4 (41-53) % MCV 85.5 (80-100) fL MCH 29.3 (26-34) PG MCHC 34.3 (30-36) % RDW 12.9 (11.6-14.8) % Plt Count 246 (150-400) X10^3/uL Neut % (Auto) 72.0 (50-75) % Lymph % (Auto) 13.7 L (25-40) % Sutter % (Auto) 9.0 (3-14) % Eos % (Auto) 4.5 H (2-4) % Baso % (Auto) 0.8 (0-2) % Neut # (Auto) 7900 H (7711-1152) /uL Lymph # (Auto) 1500 (3124-8377) /uL Sutter # (Auto) 1000 H (0-900) /uL Eos # (Auto) 500 H (0-450) /uL Baso # (Auto) 100 (0-100) /uL PT 14.4 H (10.1-12.7) SECONDS INR 1.3 (0.9-1.3) D-Dimer (<500) ng/ml Sodium 137 (137-145) mmol/L Potassium 3.5 (3.4-5.1) mmol/L Chloride 100 (98-107) mmol/L Carbon Dioxide 26 (22-32) mmol/L BUN 18 (9-20) mg/dL Creatinine 0.90 (0.66-1.25) mg/dL Estimated GFR > 60 (>60) mL/min BUN/Creatinine Ratio 20.0 (6-22) Glucose 132 H (80-110) mg/dL Lactate (0.7-2.1) mmol/L Calcium 9.2 (8.4-10.2) mg/dL Total Bilirubin 1.0 (0.2-1.3) mg/dL AST 29 (17-59) IU/L ALT 46 (<50) IU/L Alkaline Phosphatase 64 (38-126) U/L Troponin I < 0.012 (0.01-0.034) ng/mL NT-Pro-B Natriuret Pep 148 H (<125) pg/mL Total Protein 7.6 (6.3-8.2) g/dL Albumin 4.1 (3.5-5.0) g/dL Globulin 3.5 (1.7-4.1) g/dL Albumin/Globulin Ratio 1.2 (1.0-2.8) 09/14/22 09/14/22 Range/Units 11:00 11:00 WBC (4.5-11.0) X10^3/uL RBC (4.5-5.9) X10^6/uL Hgb (13.5-17.5) g/dL Hct (41-53) % MCV (80-100) fL MCH (26-34) PG MCHC (30-36) % RDW (11.6-14.8) % Plt Count (150-400) X10^3/uL Neut % (Auto) (50-75) % Lymph % (Auto) (25-40) % Sutter % (Auto) (3-14) % Eos % (Auto) (2-4) % Baso % (Auto) (0-2) % Neut # (Auto) (8330-0162) /uL Lymph # (Auto) (2210-4798) /uL Sutter # (Auto) (0-900) /uL Eos # (Auto) (0-450) /uL Baso # (Auto) (0-100) /uL PT (10.1-12.7) SECONDS INR (0.9-1.3) D-Dimer 2623 H (<500) ng/ml Sodium (137-145) mmol/L Potassium (3.4-5.1) mmol/L Chloride (98-107) mmol/L Carbon Dioxide (22-32) mmol/L BUN (9-20) mg/dL Creatinine (0.66-1.25) mg/dL Estimated GFR (>60) mL/min BUN/Creatinine Ratio (6-22) Glucose (80-110) mg/dL Lactate 2.0 (0.7-2.1) mmol/L Calcium (8.4-10.2) mg/dL Total Bilirubin (0.2-1.3) mg/dL AST (17-59) IU/L ALT (<50) IU/L Alkaline Phosphatase (38-126) U/L Troponin I (0.01-0.034) ng/mL NT-Pro-B Natriuret Pep (<125) pg/mL Total Protein (6.3-8.2) g/dL Albumin (3.5-5.0) g/dL Globulin (1.7-4.1) g/dL Albumin/Globulin Ratio (1.0-2.8) Urine Dip Bedside Urine Glucose Negative Bedside Urine Bilirubin - Negative Bedside Urine Ketone - Negative Urine Specific [place] 1.015 Bedside Urine Occult Blood - Negative Bedside Urine pH 6.0 Bedside Urine Protein - Negative Bedside Urine Urobilinogen +/- 1mg Bedside Urine Nitrite - Negative Bedside Urine Leukocytes - Negative Esterase Imaging Data Chest x-ray: My Impression: I agree with radiologist's interpretation Radiologist's Impression: [address] [address] XRay Report Signed Patient: Masoud Irene MR#: [id number] : 1955 Acct:[id number] Age/Sex: 67 / M Date of Service: 09/14/22 Loc: ED Accession Number: [id number] ?? Procedure: XR chest 1V Ordering Provider: Bryan Prajapati MD PROCEDURE:? XR CHEST 1V ? INDICATIONS:? Shortness of breath ? TECHNIQUE:? One view of the chest was acquired.? ? COMPARISON:? [facility], , XR CHEST 1V, 09/07/2022, 1:54. ? FINDINGS:? ? Surgical changes and devices:? Right upper quadrant drain present. ? Lungs and pleura:? Streaky bibasilar airspace opacities, probably atelectasis. ? Mediastinum:? Mediastinal contours appear normal.? Heart size is normal.? ? Bones and chest wall:? No suspicious bony lesions.? Overlying soft tissues appear unremarkable.? Elevation of the right hemidiaphragm. ? IMPRESSION:? Streaky bibasilar airspace opacities, likely atelectasis. ? ? Elevation of the right hemidiaphragm stable from prior. ? Dictated by: Tobi Francisco M.D. on 09/14/2022 at 11:32 ? ? Approved by: Tobi Francisco M.D. on 09/14/2022 at 11:33?? CT scan - chest: Radiologist's Impression: [address] [address] [address] Scan Report Signed Patient: Masoud Irene MR#: [id number] : 1955 Acct:[id number] Age/Sex: 67 / M Date of Service: 09/14/22 Loc: ED Accession Number: [id number] ?? Procedure: CT angio chest PE protocol Ordering Provider: Abi Collier P.A-C PROCEDURE:? CT ANGIO CHEST PE PROTOCOL ? INDICATIONS:? Post op SHOB, r/o PE ? TECHNIQUE:? After the administration of intravenous contrast, 2 mm thick sections acquired from the pulmonary apices to the posterior costophrenic angles.? 3-dimensional maximum intensity projection (MIP) coronal and sagittal reformats were then acquired through the thorax.? For radiation dose reduction, the following was used:? automated exposure cont rol, adjustment of mA and/or kV according to patient size.? ? COMPARISON:? [facility], CT, CT ANGIO CHEST ABDOMEN PELVIS, 09/07/2022, 5:18. ? FINDINGS:? ? Pulmonary arteries:? Pulmonary arteries are normal in size, and demonstrate no intraluminal filling defects to suggest central pulmonary embolism.? ? Lungs and pleura:? Lung volumes are low.? Dependent consolidative opacities present at the lung bases.? No pleural effusion or pneumothorax ? Mediastinum:? No pericardial effusion.? Thoracic aorta is normal in caliber and enhancement.? Multivessel coronary artery calcifications and/or stents. ? Bones and chest wall:? Multilevel degenerative change of the visualized spine.? No axillary or supraclavicular adenopathy.? ? Abdomen:? Percutaneous drain present terminating at the right upper quadrant/gallbladder fossa. ? IMPRESSION:? 1. No pulmonary embolism demonstrated. 2. Low lung volumes with basilar opacities likely representing atelectasis. ? ? Dictated by: Feng Quintanilla M.D. on 09/14/2022 at 14:56 ? ? Approved by: Feng Quintanilla M.D. on 09/14/2022 at 15:08?? ECG Data Attestation: I personally reviewed and interpreted this ECG as follows: Interpretation: NSR heart rate [address] changes noted. Also reviewed by Attending MD Prajapati Treatment and disposition Shared decision making:: Shared decision-making was used in determining this patient's plan of care in the emergency department, studies and plan for outpatient follow-up. MDM Narrative Medical decision making narrative: This is a 67-year-old male who presents sent by his surgeon for further evaluation of both his postop shortness of breath and possible concern for bile leak post cholecystectomy. After consultation with attending physician and D- dimer was ordered and found to be positive, did discuss with the patient symptoms and further evaluation with PE study versus monitoring symptoms at home. Patient's surgeon came to emergency department and evaluated the patient and was also involved in conversation, ultimately patient did decide to have PE study done which returns negative for pulmonary embolism. Patient's surgeon evaluated patient in the emergency department today and was initially considering HIDA scan for further evaluation concern for a bile leak post ch olecystectomy on 09/10/2022. However ultimately after consultation with another surgeon decision was made to have the patient follow-up as an outpatient with suspicion that this is likely going to be self-resolving. Patient's labs with the exception of his D-dimer was generally unremarkable. Patient himself did not have any significant abdominal tenderness or abdominal pain or other symptoms suggestive of a severe bile leak. He did endorse intermittent exertional shortness of breath and chest x-ray and other labs were unremarkable for cardiac process, pneumonia or PE. Wells PE score is 4.5. Patient does have some atelectasis, likely consistent with recent surgery. PE study returned ne gative. Patient has a follow-up scheduled with his surgeon on Monday in 2 days. Counseled the patient regarding return precautions, follow-up plan discussed, all questions answered. <Bryan Prajapati MD - Last Filed: 09/14/22 20:22> Lab Data Labs: Lab Results 09/14/22 09/14/22 09/14/22 Range/Units 11:00 11:00 11:00 WBC 11.0 (4.5-11.0) X10^3/uL RBC 5.08 (4.5-5.9) X10^6/uL Hgb 14.9 (13.5-17.5) g/dL Hct 43.4 (41-53) % MCV 85.5 (80-100) fL MCH 29.3 (26-34) PG MCHC 34.3 (30-36) % RDW 12.9 (11.6-14.8) % Plt Count 246 (150-400) X10^3/uL Neut % (Auto) 72.0 (50-75) % Lymph % (Auto) 13.7 L (25-40) % Sutter % (Auto) 9.0 (3-14) % Eos % (Auto) 4.5 H (2-4) % Baso % (Auto) 0.8 (0-2) % Neut # (Auto) 7900 H (0895-9438) /uL Lymph # (Auto) 1500 (4806-9593) /uL Sutter # (Auto) 1000 H (0-900) /uL Eos # (Auto) 500 H (0-450) /uL Baso # (Auto) 100 (0-100) /uL PT 14.4 H (10.1-12.7) SECONDS INR 1.3 (0.9-1.3) D-Dimer (<500) ng/ml Sodium 137 (137-145) mmol/L Potassium 3.5 (3.4-5.1) mmol/L Chloride 100 (98-107) mmol/L Carbon Dioxide 26 (22-32) mmol/L BUN 18 (9-20) mg/dL Creatinine 0.90 (0.66-1.25) mg/dL Estimated GFR > 60 (>60) mL/min BUN/Creatinine Ratio 20.0 (6-22) Glucose 132 H (80-110) mg/dL Lactate (0.7-2.1) mmol/L Calcium 9.2 (8.4-10.2) mg/dL Total Bilirubin 1.0 (0.2-1.3) mg/dL AST 29 (17-59) IU/L ALT 46 (<50) IU/L Alkaline Phosphatase 64 (38-126) U/L Troponin I < 0.012 (0.01-0.034) ng/mL NT-Pro-B Natriuret Pep 148 H (<125) pg/mL Total Protein 7.6 (6.3-8.2) g/dL Albumin 4.1 (3.5-5.0) g/dL Globulin 3.5 (1.7-4.1) g/dL Albumin/Globulin Ratio 1.2 (1.0-2.8) 09/14/22 09/14/22 Range/Units 11:00 11:00 WBC (4.5-11.0) X10^3/uL RBC (4.5-5.9) X10^6/uL Hgb (13.5-17.5) g/dL Hct (41-53) % MCV (80-100) fL MCH (26-34) PG MCHC (30-36) % RDW (11.6-14.8) % Plt Count (150-400) X10^3/uL Neut % (Auto) (50-75) % Lymph % (Auto) (25-40) % Sutter % (Auto) (3-14) % Eos % (Auto) (2-4) % Baso % (Auto) (0-2) % Neut # (Auto) (3351-5751) /uL Lymph # (Auto) (2777-0090) /uL Sutter # (Auto) (0-900) /uL Eos # (Auto) (0-450) /uL Baso # (Auto) (0-100) /uL PT (10.1-12.7) SECONDS INR (0.9-1.3) D-Dimer 2623 H (<500) ng/ml Sodium (137-145) mmol/L Potassium (3.4-5.1) mmol/L Chloride (98-107) mmol/L Carbon Dioxide (22-32) mmol/L BUN (9-20) mg/dL Creatinine (0.66-1.25) mg/dL Estimated GFR (>60) mL/min BUN/Creatinine Ratio (6-22) Glucose (80-110) mg/dL Lactate 2.0 (0.7-2.1) mmol/L Calcium (8.4-10.2) mg/dL Total Bilirubin (0.2-1.3) mg/dL AST (17-59) IU/L ALT (<50) IU/L Alkaline Phosphatase (38-126) U/L Troponin I (0.01-0.034) ng/mL NT-Pro-B Natriuret Pep (<125) pg/mL Total Protein (6.3-8.2) g/dL Albumin (3.5-5.0) g/dL Globulin (1.7-4.1) g/dL Albumin/Globulin Ratio (1.0-2.8) Urine Dip Bedside Urine Glucose Negative Bedside Urine Bilirubin - Negative Bedside Urine Ketone - Negative Urine Specific [place] 1.015 Bedside Urine Occult Blood - Negative Bedside Urine pH 6.0 Bedside Urine Protein - Negative Bedside Urine Urobilinogen +/- 1mg Bedside Urine Nitrite - Negative Bedside Urine Leukocytes - Negative Esterase Discharge Plan Departure Patient Disposition: Home Clinical Impression: Post-operative complication, Exertional dyspnea, Bile leak Activity Restrictions/Additional Instructions: Thank you for letting us be part of your care today in the emergency department. Your surgeon Dr. Sears did come and evaluate you today while you were here, and will be following up with you as an outpatient regarding your drain and suspected small bile leak. You also had concerns regarding shortness of breath with exertion and we evaluated you for this today with a CT scan which returned negative for pulmonary embolism (no blood clot). It is possible that your postop shortness of breath is related to your lungs being affected, this is not uncommon. You should of course monitor for new or worsening symptoms over the next few days to week and follow up as planned with your surgeon as an outpatient. There is no evidence of an emergent or life threatening illness at this time, but follow up with your doctor in 1-2 days is recommended nonetheless to continue to rule out serious underlying causes of your symptoms. Please call the office for an appointment. Please return to the Emergency Department for any worsening or persistent symptoms. Please take medications as directed. Prescriptions: No Action cholecalciferol (vitamin D3) 125 mcg (5,000 unit) capsule 50 mcg PO DAILY chlorthalidone 50 mg tablet 25 mg PO DAILY losartan 100 mg tablet 100 mg PO DAILY carvedilol 6.25 mg tablet 6.25 mg PO BID esomeprazole magnesium [Nexium] 40 mg capsule,delayed release(DR/EC) 40 mg PO DAILY gabapentin 100 mg capsule 100 mg PO BID ascorbic acid (vitamin C) 500 mg capsule 1,000 mg PO DAILY Galzin 50 mg (zinc) capsule 50 mg PO DAILY valacyclovir 1 gram tablet 1,000 mg PO PRN PRN (Reason: Breakout/flare) atorvastatin [Lipitor] 80 mg Tablet 80 mg PO DAILY tramadol 50 mg Tablet 50 mg PO QID PRN (Reason: Pain, Moderate (4-6)) Qty: 20 0RF Rx Instructions: May take 1-2 tabs as needed for pain. docusate sodium [Colace] 100 mg capsule 100 mg PO BID Qty: 30 0RF Rx Instructions: take while taking pain medication to prevent constipation. aspirin 81 mg capsule 81 mg PO DAILY Qty: 30 0RF Rx Instructions: Restart in 5 days. sildenafil 100 mg Tablet 100 mg PO PRN PRN (Reason: Sexual Activity) Rx Instructions: administer 30 minutes to 4 hours before activity Referrals: Bryan Barr MD [Primary Care Provider] - Stand Alone Forms: Patient Portal/API
[2022-09-14 13:48] LABS: D Dimer 2623 ng/ml (<500)
--- NOTE | 2022-09-14 14:28 | DI.CT.S_ITS ---
PROCEDURE: CT ANGIO CHEST PE PROTOCOL INDICATIONS: Post op SHOB, r/o PE TECHNIQUE: After the administration of intravenous contrast, 2 mm thick sections acquired from the pulmonary apices to the posterior costophrenic angles. 3-dimensional maximum intensity projection (MIP) coronal and sagittal reformats were then acquired through the thorax. For radiation dose reduction, the following was used: automated exposure control, adjustment of mA and/or kV according to patient size. COMPARISON: [facility], CT, CT ANGIO CHEST ABDOMEN PELVIS, 09/07/2022, 5:18. FINDINGS: Pulmonary arteries: Pulmonary arteries are normal in size, and demonstrate no intraluminal filling defects to suggest central pulmonary embolism. Lungs and pleura: Lung volumes are low. Dependent consolidative opacities present at the lung bases. No pleural effusion or pneumothorax Mediastinum: No pericardial effusion. Thoracic aorta is normal in caliber and enhancement. Multivessel coronary artery calcifications and/or stents. Bones and chest wall: Multilevel degenerative change of the visualized spine. No axillary or supraclavicular adenopathy. Abdomen: Percutaneous drain present terminating at the right upper quadrant/gallbladder fossa. IMPRESSION: 1. No pulmonary embolism demonstrated. 2. Low lung volumes with basilar opacities likely representing atelectasis. Dictated by: Feng Quintanilla M.D. on 09/14/2022 at 14:56 Approved by: Feng Quintanilla M.D. on 09/14/2022 at 15:08
--- NOTE | 2022-09-14 14:33 | PM.CALLCOV.1 ---
Call Coverage Note Note Date of Patient Contact: 09/14/22 Time of Patient Contact: 14:34 Narrative of Care Provided: I saw by to see Mr. Irene in the emergency room. He is 4 days status post difficult laparoscopic cholecystectomy. I reviewed his laboratory values and chest x-ray. Subjectively Mr. Irene states that he is not having abdominal pain, he is tolerating food, has a decent appetite and denies nausea. The only symptom that brought him in was shortness of breath. This seems to sort of coming go and he is even feeling better at the time that I saw him. He and his is present at the bedside were also worried because the LUCY drain has bilious output. They state that the total amount in 24 hours is about 70 cc in volume, and that it has been frankly green like this for the last day or 2. The 1st day after surgery and his 1st day at home the output was more of a red bloody color. On exam, he is awake alert and pleasant in no acute distress seated in bed. He is able to breathe nonlabored on room air and talk normally. His oral mucous membranes are moist and his sclerae are normal. His abdomen is soft minimally and appropriately tender nondistended. His LUCY drain is in place in the right lower abdomen and the drainage is frankly bilious. His wounds are clean dry and intact. His total bilirubin and other LFTs are within normal limits. He has no leukocytosis. Has a very slightly elevated BNP but otherwise his labs are unremarkable. His creatinine, though it had been elevated at 1.28 preoperatively with acute cholecystitis, has now normalized to 0.9 and he reports no history renal dysfunction. His chest x-ray showed atelectasis Based on the drain output Mr. Irene does have a bile leak. However given the lack of change in his LFTs and lack of symptoms along with the low volume of output that has been recorded in 24 hours:we can say that this is a small leak and has a potential to seal off and heal on its own with continued drainage without other intervention. Most likely to be a small leakage from the liver bed rather than a major cystic duct stump or common bile duct leak. I did discuss HIDA scan and ERCP as methods that could be used to identify the location of the leak and potentially treat a bile leak if needed. I also counseled him and his that if the output increases if he develops nausea, vomiting, worsening abdominal pain, yellowing of the eyes or skin that he should contact my office or the surgeon on-call after hours right away for further instructions. Otherwise I will plan to see him in my office on Monday and check another set of LFTs and reassess and reexamine him at that time. Because of the shortness of breath he may get a CT angiogram to rule out a pulmonary embolus based on the assessment and plan with the emergency room physicians. I will follow along and if any further questions or concerns arise please do not hesitate to contact me.
== END 2022-09-14 16:22 | disposition home or self-care (01) ==
PROVIDERS: Emergency Medicine; Emergency Provider Student in an Organized Health Care Education/Training Program; PCP Family Medicine
DX: Z98.890 Other specified postprocedural states (principal); K83.9 Disease of biliary tract, unspecified; R06.00 Dyspnea, unspecified
CPT/HCPCS: 36415; 71045; 71275; 80053; 81003; 83605; 83880; 84484; 85025; 85379; 85610; 93005; 99283; 99284; Q9967

== ENCOUNTER → 2022-09-16 08:27 | Outpatient (CLI) | payer MEDICARE, OTHER, SELFPAY ==
[2022-09-09 01:29] VITALS: BMI 32.3
[2022-09-16 09:44] LABS: Add Manual Diff / Slide Review NO; Basophils Absolute Auto 100 /uL (0-100); Basophils Percent Auto 0.6 % (0-2); Eosinophils Absolute Auto 400 /uL (0-450); Eosinophils Percent Auto 3.9 % (2-4); Hematocrit 41.6 % (41-53); Hemoglobin 14.3 g/dL (13.5-17.5); Lymphocytes Absolute Auto 1200 /uL (1100-4500); Lymphocytes Percent Auto 11.8 % (25-40); Mean Corpuscular HGB Conc 34.4 % (30-36); Mean Corpuscular Hemoglobin 29.3 PG (26-34); Mean Corpuscular Volume 85.2 fL (80-100); Monocytes Absolute Auto 900 /uL (0-900); Monocytes Percent Auto 8.7 % (3-14); Neutrophils Absolute Auto 7900 /uL (1500-7000); Platelet Count 244 X10^3/uL (150-400); Red Blood Cell Count 4.89 X10^6/uL (4.5-5.9); Red Cell Distribution Width 12.8 % (11.6-14.8); White Blood Cell Count 10.6 X10^3/uL (4.5-11.0)
[2022-09-16 10:04] LABS: Alanine Aminotransferase 35 IU/L (<50); Albumin 3.8 g/dL (3.5-5.0); Albumin Globulin Ratio 1.4 (1.0-2.8); Alkaline Phosphatase 74 U/L (38-126); Aspartate Aminotransferase 23 IU/L (17-59); BUN Creatinine Ratio 22.5 (6-22); Bilirubin Total 0.7 mg/dL (0.2-1.3); Bilirubin Unconjugated 0.4 mg/dL (0.0-1.1); Blood Urea Nitrogen 34 mg/dL (9-20); Calcium 8.8 mg/dL (8.4-10.2); Carbon Dioxide 32 mmol/L (22-32); Chloride 96 mmol/L (98-107); Estimated Glomerular Filt Rate 50 mL/min (>60); Globulin 2.8 g/dL (1.7-4.1); Glucose 129 mg/dL (80-110); HEMOLYSIS < 15 (0-50); Potassium 3.5 mmol/L (3.4-5.1); Sodium 138 mmol/L (137-145); Total Protein 6.6 g/dL (6.3-8.2)
== END ==
PROVIDERS: PCP Family Medicine; Referring Provider Surgery; Visit Provider Surgery
DX: Z09 Encounter for follow-up examination after completed treatment for conditions other than malignant neoplasm (principal); K83.8 Other specified diseases of biliary tract; K80.00 Calculus of gallbladder with acute cholecystitis without obstruction; K91.89 Other postprocedural complications and disorders of digestive system; K83.9 Disease of biliary tract, unspecified; J98.11 Atelectasis
CPT/HCPCS: 36415; 80048; 80076; 85025; 99212

== ENCOUNTER → 2022-09-17 10:12 | Outpatient (CLI) | payer MEDICARE, OTHER, SELFPAY ==
[2022-09-09 01:29] VITALS: BMI 32.3
[2022-09-17 11:29] LABS: BUN Creatinine Ratio 20.5 (6-22); Blood Urea Nitrogen 24 mg/dL (9-20); Carbon Dioxide 31 mmol/L (22-32); Chloride 97 mmol/L (98-107); Estimated Glomerular Filt Rate > 60 mL/min (>60); Glucose 83 mg/dL (80-110); HEMOLYSIS < 15 (0-50); Potassium 3.8 mmol/L (3.4-5.1); Sodium 138 mmol/L (137-145)
== END ==
PROVIDERS: PCP Family Medicine; Referring Provider Surgery; Visit Provider Surgery
DX: K83.9 Disease of biliary tract, unspecified (principal); R06.09 Other forms of dyspnea; T81.9XXA Unspecified complication of procedure, initial encounter
CPT/HCPCS: 36415; 80048

== ENCOUNTER → 2022-09-22 14:15 | Outpatient (CLI) | payer MEDICARE, OTHER, SELFPAY ==
[2022-09-19 16:48] VITALS: BMI 32.3
[2022-09-22 15:47] LABS: Alanine Aminotransferase 48 IU/L (<50); Albumin 3.9 g/dL (3.5-5.0); Albumin Globulin Ratio 1.3 (1.0-2.8); Alkaline Phosphatase 80 U/L (38-126); Aspartate Aminotransferase 35 IU/L (17-59); BUN Creatinine Ratio 19.8 (6-22); Bilirubin Total 0.5 mg/dL (0.2-1.3); Blood Urea Nitrogen 20 mg/dL (9-20); Calcium 9.1 mg/dL (8.4-10.2); Carbon Dioxide 29 mmol/L (22-32); Chloride 99 mmol/L (98-107); Estimated Glomerular Filt Rate > 60 mL/min (>60); Globulin 2.9 g/dL (1.7-4.1); Glucose 158 mg/dL (80-110); HEMOLYSIS 15 (0-50); Potassium 3.6 mmol/L (3.4-5.1); Sodium 140 mmol/L (137-145); Total Protein 6.8 g/dL (6.3-8.2)
== END ==
PROVIDERS: PCP Family Medicine; Referring Provider Surgery; Visit Provider Surgery
DX: K83.9 Disease of biliary tract, unspecified (principal); T81.9XXA Unspecified complication of procedure, initial encounter
CPT/HCPCS: 36415; 80053

== ENCOUNTER → 2022-12-08 10:39 | Outpatient (CLI) | payer MEDICARE, OTHER, SELFPAY ==
[2022-09-19 16:48] VITALS: BMI 32.3
--- NOTE | 2022-12-08 | DI.US.S_ITS ---
PROCEDURE: US ABDOMEN COMPLETE INDICATIONS: Acute gastritis without bleeding TECHNIQUE: Real-time scanning was performed of the abdominal and retroperitoneal organs, with image documentation. COMPARISON: [facility], , US ABDOMEN LIMITED, 09/07/2022, 2:13. FINDINGS: Liver: The liver measures 13.3 cm in length and demonstrates increased echogenicity. Gallbladder: Surgically absent. Biliary ducts: Intrahepatic bile ducts are non-dilated. Extrahepatic bile duct caliber measures 5 mm. Normal is 6-7 mm or less in diameter, or 10 mm or less post-cholecystectomy. Pancreas: The pancreas is poorly visualized. Spleen: Spleen is normal in size and homogeneous in echotexture. Kidneys: Kidneys are normal in size and echotexture. Right kidney measures 10.8 cm long; left kidney measures 10.5 cm long. No hydronephrosis or nephrolithiasis. No solid masses. Aorta: Visualized aorta is normal in caliber at less than 3 cm. Iliacs: Proximal common iliac arteries are normal in caliber at less than 2.5 cm. IVC: Intrahepatic inferior vena cava is patent. Miscellaneous: No free abdominal fluid. IMPRESSION: 1. Increased hepatic echogenicity noted likely related to fatty infiltration of the liver but other sources of hepatocellular disease cannot be excluded. Dictated by: Day Rogers M.D. on 12/08/2022 at 14:24 Approved by: Day Rogers M.D. on 12/08/2022 at 14:26
== END ==
PROVIDERS: PCP Family Medicine; Referring Provider Family Medicine; Visit Provider Family Medicine
DX: K29.00 Acute gastritis without bleeding (principal); Z90.49 Acquired absence of other specified parts of digestive tract
CPT/HCPCS: 76700

== ENCOUNTER → 2023-03-16 10:23 | Outpatient (CLI) | payer MEDICARE, OTHER, SELFPAY ==
[2022-09-19 16:48] VITALS: BMI 32.3
== END ==
PROVIDERS: PCP Family Medicine; Referring Provider Family Medicine; Visit Provider Family Medicine
DX: R00.2 Palpitations (principal); R07.1 Chest pain on breathing
CPT/HCPCS: 93246

== ENCOUNTER 2023-07-21 10:46 | Emergency (ER) | payer MEDICARE, OTHER, SELFPAY ==
[2022-09-19 16:48] VITALS: BMI 32.3
[2023-07-21] VITALS (7 sets, daily range): BP systolic 123–180; BP diastolic 66–72; PULSE 54–79; RESP 12–20; TEMP 36.5; O2SAT 96–98; BMI 30.7
--- NOTE | 2023-07-21 10:50 | DI.RAD.S_ITS ---
PROCEDURE: XR CHEST 1V INDICATIONS: chest pain TECHNIQUE: One view of the chest was acquired. COMPARISON: [facility], CR, XR CHEST 1V, 09/14/2022, 11:11. FINDINGS: Surgical changes and devices: Cine loop recorder is noted.. Lungs and pleura: Lungs are clear. No pleural effusions or pneumothorax. Mediastinum: Mediastinal contours appear normal. Heart size is enlarged. Bones and chest wall: No suspicious bony lesions. Overlying soft tissues appear unremarkable. IMPRESSION: No acute cardiopulmonary abnormality is seen. Dictated by: Africa Gould M.D. on 07/21/2023 at 11:26 Approved by: Africa Gould M.D. on 07/21/2023 at 11:27
--- NOTE | 2023-07-21 11:12 | ED_ITS ---
HPI - Chest Pain General Chief Complaint: Chest Pain Stated Complaint: chest pain, hx of heart problems Time Seen by Provider: 07/21/23 10:51 Source: patient Mode of arrival: Ambulatory Limitations: no limitations History of Present Illness HPI narrative: 68-year-old male with history of coronary disease (no stents) presents by private vehicle from home for 2 days of intermittent chest pains. Chest pain seems to come and go without cause. He states that he can hike and climb without causing chest pain, but sometimes while sitting and resting he will have a squeezing pain. He states that he has been extensively worked up by his drawing frame tender for these intermittent pains and has had ?every test you can do?, but no cause has been found. He had an episode earlier today that seemed more intense than usual and so he decided to present for evaluation. Currently pain- free. Related Data Home Medications Medication Instructions Recorded Confirmed atorvastatin 80 mg tablet (Lipitor) 80 mg PO DAILY 07/22/19 09/27/22 ascorbic acid (vitamin C) 500 mg 1,000 mg PO DAILY 09/01/22 09/27/22 capsule carvedilol 6.25 mg tablet 6.25 mg PO BID 09/01/22 09/27/22 chlorthalidone 50 mg tablet 25 mg PO DAILY 09/01/22 09/27/22 cholecalciferol (vitamin D3) 125 50 mcg PO DAILY 09/01/22 09/27/22 mcg (5,000 unit) capsule esomeprazole magnesium 40 mg 40 mg PO DAILY 09/01/22 09/27/22 capsule,delayed release (Nexium) gabapentin 100 mg capsule 100 mg PO BID 09/01/22 09/27/22 losartan 100 mg tablet 100 mg PO DAILY 09/01/22 09/27/22 valacyclovir 1 gram tablet 1,000 mg PO PRN PRN Breakout/flare 09/01/22 09/27/22 zinc acetate 50 mg (zinc) capsule 50 mg PO DAILY 09/01/22 09/27/22 (Galzin) sildenafil 100 mg tablet 100 mg PO PRN PRN Sexual Activity 09/09/22 09/27/22 Previous Rx's Medication Instructions Recorded aspirin 81 mg capsule 81 mg PO DAILY #30 caps 09/11/22 docusate sodium 100 mg capsule 100 mg PO BID #30 caps 04/02/23 (Colace) tramadol 50 mg tablet 50 mg PO QID PRN Pain, Moderate 09/11/22 (4-6) #20 tabs Allergies Allergy/AdvReac Type Severity Reaction Status Date / Time amoxicillin Allergy Intermediate Hives Verified 07/21/23 10:59 REI Inhibitors Allergy Unknown Swellling, Verified 07/21/23 10:59 angioedema Review of Systems Review of Systems Narrative: Negative except as noted above Patient History Medical History Exertional dyspnea Acute cholecystitis due to biliary calculus Headache, migraine Neuropathy HLD (hyperlipidemia) Sleep apnea History of COVID-19 (10/2021) Myocardial infarction (07/1993) Biliary colic RUQ abdominal pain Acute gastritis Hypertension Coronary arteriosclerosis Social History marital status: household members: spouse lives independently: Yes occupational status: previously employed Smoking Status: Former smoker alcohol intake: current Smoking Status: Former smoker alcohol intake frequency: holidays/special occasions only Alcohol type: beer Substance Use Type: does not use Exam Initial Vital Signs Initial Vital Signs: Vital Signs Temperature 97.7 F 07/21/23 10:54 Pulse Rate 79 07/21/23 10:54 Respiratory Rate 20 07/21/23 10:54 Blood Pressure 141/66 H 07/21/23 10:54 Pulse Oximetry 98 07/21/23 10:54 Oxygen Delivery Method Room Air 07/21/23 10:54 Const: Awake, alert, no acute distress, nontoxic appearing Eyes: PERRL, EOMI, conjunctiva normal ENT: Atraumatic, dentition normal, mucous membranes moist Cardiac: regular rate, regular rhythm RESP: unlabored, clear bilaterally, no wheezing GI: Atraumatic, soft, nontender, nondistended, no rebound, no guarding MSK: Atraumatic, full range of motion, pulses equal Skin: Warm, Dry, intact, no rashes Neuro: AO x3, CN II-XII grossly intact, moves all extremities Psych: affect normal, mood normal, not suicidal, not homicidal Course Orders Ordered: Discontinued Medications Aspirin (Aspirin 81 Mg Chew Tab) 324 mg PO NOW ONE Stop: 07/21/23 10:51 Last Admin: 07/21/23 12:16 Dose: Not Given Documented By: OW Vital Signs Vital signs: Vital Signs - 8 hr 07/21/23 10:54 07/21/23 11:30 07/21/23 12:00 Temperature 97.7 F Pulse Rate 79 63 61 Respiratory Rate 20 18 16 Blood Pressure 141/66 H 123/68 144/67 H Pulse Oximetry 98 98 96 Oxygen Delivery Method Room Air Room Air Room Air 07/21/23 12:30 07/21/23 13:00 07/21/23 13:00 Temperature Pulse Rate 58 L 57 L Respiratory Rate 15 15 Blood Pressure 163/71 H 180/72 H Pulse Oximetry 96 98 Oxygen Delivery Method Room Air MDM - Chest Pain Differential Diagnosis Differential diagnosis: Likely pneumothorax, atypical chest pain, st elevation myocardial infarction, costochondritis and chest pain Lab Data 07/21/23 11:09 07/21/23 11:09 Labs: Lab Results 07/21/23 Range/Units 11:09 WBC 7.5 (4.5-11.0) X10^3/uL RBC 5.15 (4.5-5.9) X10^6/uL Hgb 15.1 (13.5-17.5) g/dL Hct 43.4 (41-53) % MCV 84.2 (80-100) fL MCH 29.4 (26-34) PG MCHC 34.9 (30-36) % RDW 12.7 (11.6-14.8) % Plt Count 148 L (150-400) X10^3/uL Neut % (Auto) 61.5 (50-75) % Lymph % (Auto) 24.2 L (25-40) % [place] % (Auto) 8.1 (3-14) % Eos % (Auto) 5.1 H (2-4) % Baso % (Auto) 1.1 (0-2) % Neut # (Auto) 4600 (9663-1210) /uL Lymph # (Auto) 1800 (9102-5558) /uL [place] # (Auto) 600 (0-900) /uL Eos # (Auto) 400 (0-450) /uL Baso # (Auto) 100 (0-100) /uL PT 11.6 (9.4-12.5) SECONDS INR 1.0 (0.9-1.3) APTT 32 (25.1-36.5) SECONDS Sodium 140 (137-145) mmol/L Potassium 3.9 (3.4-5.1) mmol/L Chloride 104 (98-107) mmol/L Carbon Dioxide 26 (22-32) mmol/L BUN 27 H (9-20) mg/dL Creatinine 1.15 (0.66-1.25) mg/dL Estimated GFR > 60 (>60) mL/min BUN/Creatinine Ratio 23.5 H (6-22) Glucose 113 H (80-110) mg/dL Calcium 9.2 (8.4-10.2) mg/dL Magnesium 1.9 (1.6-2.3) mg/dL Total Bilirubin 1.2 (0.2-1.3) mg/dL AST 35 (17-59) IU/L ALT 39 (<50) IU/L Alkaline Phosphatase 70 (38-126) U/L Total Creatine Kinase 114 (55-170) U/L Troponin I < 0.012 (0.01-0.034) ng/mL Total Protein 7.8 (6.3-8.2) g/dL Albumin 4.5 (3.5-5.0) g/dL Globulin 3.3 (1.7-4.1) g/dL Albumin/Globulin Ratio 1.4 (1.0-2.8) Lipase 164 (23-300) U/L ECG Data Interpretation: Normal sinus rhythm, left bundle-branch block, no Sgarbossa criteria MDM Narrative Medical decision making narrative: Well-appearing patient with 2 days of intermittent chest pain. Currently pain- free. Patient reports being extensively worked up by Cardiology for this over the years. Call placed to patient's drawing frame tender Dr. Price for previous records. Laboratory work is reviewed, unremarkable. Troponin undetectable, chest x-ray without acute findings. Reviewed records from Dr. Price's office. Left bundle-branch appears to be new, previous EKG from cardiology office showed normal sinus rhythm in April of 2023. I spoke with patient's drawing frame tender Dr. Price at 1315, and reviewed labs, story, and new EKG findings. Since this has been ongoing for 2 days with negative troponins it is less likely to be ACS. Cardiology states that they will call to schedule a follow up appointment for stress test within the week. Patient and updated of labs, EKG, cardiology recommendations at bedside. Strict ED return precautions discussed at bedside. Patient expressed understanding of the plan and is in agreement at this time. All questions answered at the time of discharge. Discharge Plan Departure Patient Disposition: Home Clinical Impression: LBBB (left bundle branch block) Chest pain Qualifiers: Chest pain type: unspecified Qualified Code(s): R07.9 - Chest pain, unspecified Instructions: DI for Chest Pain Activity Restrictions/Additional Instructions: You were seen today for chest pain. Your EKG did show a new left bundle branch block, but your enzymes were normal and your chest x-ray did not show any concerning findings. I spoke with your drawing frame tender, who will reach out to you to schedule a stress test. Please call their office if you do not receive a call with in the next 24 hours. Please return to the emergency department for any new or worsening chest pains. Prescriptions: No Action cholecalciferol (vitamin D3) 125 mcg (5,000 unit) capsule 50 mcg PO DAILY chlorthalidone 50 mg tablet 25 mg PO DAILY losartan 100 mg tablet 100 mg PO DAILY carvedilol 6.25 mg tablet 6.25 mg PO BID esomeprazole magnesium [Nexium] 40 mg capsule,delayed release(DR/EC) 40 mg PO DAILY gabapentin 100 mg capsule 100 mg PO BID ascorbic acid (vitamin C) 500 mg capsule 1,000 mg PO DAILY Galzin 50 mg (zinc) capsule 50 mg PO DAILY valacyclovir 1 gram tablet 1,000 mg PO PRN PRN (Reason: Breakout/flare) atorvastatin [Lipitor] 80 mg Tablet 80 mg PO DAILY tramadol 50 mg Tablet 50 mg PO QID PRN (Reason: Pain, Moderate (4-6)) Qty: 20 0RF Rx Instructions: May take 1-2 tabs as needed for pain. docusate sodium [Colace] 100 mg capsule 100 mg PO BID Qty: 30 0RF Rx Instructions: take while taking pain medication to prevent constipation. aspirin 81 mg capsule 81 mg PO DAILY Qty: 30 0RF Rx Instructions: Restart in 5 days. sildenafil 100 mg Tablet 100 mg PO PRN PRN (Reason: Sexual Activity) Rx Instructions: administer 30 minutes to 4 hours before activity Referrals: Bryan Barr MD [Primary Care Provider] - Danial Price MD [Physician] - Stand Alone Forms: Patient Portal/API
[2023-07-21 11:31] LABS: Add Manual Diff / Slide Review NO; Basophils Absolute Auto 100 /uL (0-100); Basophils Percent Auto 1.1 % (0-2); Eosinophils Absolute Auto 400 /uL (0-450); Eosinophils Percent Auto 5.1 % (2-4); Hematocrit 43.4 % (41-53); Hemoglobin 15.1 g/dL (13.5-17.5); Lymphocytes Absolute Auto 1800 /uL (1100-4500); Lymphocytes Percent Auto 24.2 % (25-40); Mean Corpuscular HGB Conc 34.9 % (30-36); Mean Corpuscular Hemoglobin 29.4 PG (26-34); Mean Corpuscular Volume 84.2 fL (80-100); Monocytes Absolute Auto 600 /uL (0-900); Monocytes Percent Auto 8.1 % (3-14); Neutrophils Absolute Auto 4600 /uL (1500-7000); Neutrophils Percent Auto 61.5 % (50-75); Platelet Count 148 X10^3/uL (150-400); Red Blood Cell Count 5.15 X10^6/uL (4.5-5.9); Red Cell Distribution Width 12.7 % (11.6-14.8); White Blood Cell Count 7.5 X10^3/uL (4.5-11.0)
[2023-07-21 11:33] LABS: Alanine Aminotransferase 39 IU/L (<50); Albumin 4.5 g/dL (3.5-5.0); Albumin Globulin Ratio 1.4 (1.0-2.8); Alkaline Phosphatase 70 U/L (38-126); Aspartate Aminotransferase 35 IU/L (17-59); BUN Creatinine Ratio 23.5 (6-22); Bilirubin Total 1.2 mg/dL (0.2-1.3); Blood Urea Nitrogen 27 mg/dL (9-20); Calcium 9.2 mg/dL (8.4-10.2); Carbon Dioxide 26 mmol/L (22-32); Chloride 104 mmol/L (98-107); Creatine Kinase 114 U/L (55-170); Estimated Glomerular Filt Rate > 60 mL/min (>60); Globulin 3.3 g/dL (1.7-4.1); Glucose 113 mg/dL (80-110); HEMOLYSIS 39 (0-50); Lipase 164 U/L (23-300); Magnesium 1.9 mg/dL (1.6-2.3); Potassium 3.9 mmol/L (3.4-5.1); Sodium 140 mmol/L (137-145); Total Protein 7.8 g/dL (6.3-8.2)
[2023-07-21 11:44] LABS: Troponin I < 0.012 ng/mL (0.01-0.034)
[2023-07-21 11:46] LABS: Prothrombin Time 11.6 SECONDS (9.4-12.5)
[2023-07-21 11:48] LABS: PTT Partial Thromboplastin Tim 32 SECONDS (25.1-36.5)
== END 2023-07-21 13:51 | disposition home or self-care (01) ==
PROVIDERS: Emergency Provider Emergency Medicine; PCP Family Medicine
DX: R07.9 Chest pain, unspecified (principal); I45.10 Unspecified right bundle-branch block
CPT/HCPCS: 36415; 71045; 80053; 82550; 83690; 83735; 84484; 85025; 85610; 85730; 93005; 93010; 99284

== ENCOUNTER → 2023-09-22 06:37 | Outpatient (CLI) | payer MEDICARE, OTHER, SELFPAY ==
[2022-09-19 16:48] VITALS: BMI 32.3
--- NOTE | 2023-09-22 | DI.US.S_ITS ---
PROCEDURE: US ARTERIAL DUPLEX LE LT INDICATIONS: CLAUDICATION TECHNIQUE: Color and pulse Doppler interrogation was performed of the left lower extremity arterial system, with image documentation. COMPARISON: None. FINDINGS: Common femoral artery: 164/511/421 cm/sec, with biphasic flow. Deep femoral artery: 126 cm/sec, with biphasic flow. Proximal superficial femoral artery: 214 cm/sec, with biphasic flow. Mid superficial femoral artery: 100 cm/sec, with biphasic flow. Distal superficial femoral artery: 52 cm/sec, with biphasic flow. Popliteal artery: 38 cm/sec, with biphasic flow. Posterior tibial artery: 140 cm/sec, with biphasic flow. Anterior tibial artery/dorsalis pedis: 76 cm/sec, with biphasic flow. Akhtar-scale imaging description: Marked atherosclerotic plaque in the common femoral artery. Scattered atherosclerotic plaque throughout the left lower extremity. IMPRESSION: 1. High grade stenosis in the common femoral artery with elevated velocity ratio of 3.1 with marked atherosclerotic calcification. Recommend Vascular Surgery consultation. 2. Elevated velocity in the proximal SFA of 214 cm/S with a biphasic waveform may represent a developing stenosis of 20-50 percent. 3. Remainder of the left lower extremity arterial vasculature demonstrates no velocity shift to suggest hemodynamically significant stenosis. There is scattered atherosclerotic plaque throughout. Dictated by: Roosevelt Salgado M.D. on 09/22/2023 at 10:41 Approved by: Roosevelt Salgado M.D. on 09/22/2023 at 10:50
--- NOTE | 2023-09-22 06:39 | DI.US.S_ITS ---
PROCEDURE: US PERIPH VENOUS LOW EXTREM LT INDICATIONS: R/O CLAUDICATION AND DVT TECHNIQUE: Real-time imaging, as well as color and pulse Doppler interrogation, were performed of the lower extremity deep veins from the inguinal ligament to the popliteal fossa, with documentation of the visualized calf veins. COMPARISON: None. FINDINGS: The common femoral, femoral, popliteal, and the visualized calf veins are normally compressible, and free of intraluminal thrombus. Color and pulse Doppler demonstrate normal phasic intraluminal flow. There is normal augmentation response to distal compression maneuver. IMPRESSION: No findings of lower extremity deep venous thrombosis. Dictated by: Africa Gould M.D. on 09/22/2023 at 9:14 Approved by: Africa Gould M.D. on 09/22/2023 at 9:22
== END ==
LOC: US 06:38
PROVIDERS: PCP Family Medicine; Referring Provider Family Medicine; Visit Provider Family Medicine
DX: I73.9 Peripheral vascular disease, unspecified (principal)
CPT/HCPCS: 93926; 93971

== ENCOUNTER 2023-12-24 17:52 | Emergency (ER) | payer MEDICARE, OTHER, SELFPAY ==
[2022-09-19 16:48] VITALS: BMI 32.3
[2023-12-24 17:54] VITALS: BP 194/80; PULSE 72; RESP 16; TEMP 36.4; O2SAT 100; BMI 31.6
--- NOTE | 2023-12-24 20:11 | ED.ANXIETY ---
HPI - Anxiety General Chief Complaint: Anxiety Stated Complaint: anxiety attack, hx Menieres disease Time Seen by Provider: 12/24/23 19:10 History of Present Illness HPI narrative: 68-year-old male with history of hypertension, Meniere's disease, history of mumps as a child with profound hearing loss in his left ear presents by private vehicle from home for tinnitus and worsening anxiety. Patient states that over the last several weeks he was had worsening of ringing in his bilateral ears and feels like his hearing in his right ear is starting to decline. Patient has had a lot of stressors in his life with his family as well as related to his hearing difficulties. He has been taking meclizine at home without significant relief. He saw a homeopathic doctor who placed him on a ear drop medication 3 days ago, but this is not seem to be helping. Patient has felt very stressed, depressed, tearful. This morning the patient had what he describes as a ?breakdown?, with uncontrollable crying and anxiety. He called his primary care doctor's office who referred him to the ER for evaluation. He has a pending ENT appointment, but it was not for several weeks and he was very concerned that his right ear is going to lose hearing permanently. Related Data Home Medications Medication Instructions Recorded Confirmed atorvastatin 80 mg tablet (Lipitor) 80 mg PO DAILY 07/22/19 09/27/22 ascorbic acid (vitamin C) 500 mg 1,000 mg PO DAILY 09/01/22 09/27/22 capsule carvedilol 6.25 mg tablet 6.25 mg PO BID 09/01/22 09/27/22 chlorthalidone 50 mg tablet 25 mg PO DAILY 09/01/22 09/27/22 cholecalciferol (vitamin D3) 125 50 mcg PO DAILY 09/01/22 09/27/22 mcg (5,000 unit) capsule esomeprazole magnesium 40 mg 40 mg PO DAILY 09/01/22 09/27/22 capsule,delayed release (Nexium) gabapentin 100 mg capsule 100 mg PO BID 09/01/22 09/27/22 losartan 100 mg tablet 100 mg PO DAILY 09/01/22 09/27/22 valacyclovir 1 gram tablet 1,000 mg PO PRN PRN Breakout/flare 09/01/22 09/27/22 zinc acetate 50 mg (zinc) capsule 50 mg PO DAILY 09/01/22 09/27/22 (Galzin) sildenafil 100 mg tablet 100 mg PO PRN PRN Sexual Activity 09/09/22 09/27/22 Previous Rx's Medication Instructions Recorded aspirin 81 mg capsule 81 mg PO DAILY #30 caps 09/11/22 docusate sodium 100 mg capsule 100 mg PO BID #30 caps 09/11/22 (Colace) tramadol 50 mg tablet 50 mg PO QID PRN Pain, Moderate 09/11/22 (4-6) #20 tabs amlodipine 10 mg tablet 10 mg PO DAILY #30 tabs 12/24/23 diazepam 5 mg tablet 5 mg PO BEDTIME PRN sleep #10 tabs 12/24/23 hydroxyzine pamoate 25 mg capsule 25 mg PO TID PRN anxiety #30 caps 12/24/23 Allergies Allergy/AdvReac Type Severity Reaction Status Date / Time amoxicillin Allergy Intermediate Hives Verified 07/21/23 10:59 REI Inhibitors Allergy Unknown Swellling, Verified 07/21/23 10:59 angioedema Patient History Medical History Exertional dyspnea Acute cholecystitis due to biliary calculus Headache, migraine Neuropathy HLD (hyperlipidemia) Sleep apnea History of COVID-19 (10/2021) Myocardial infarction (07/1993) Biliary colic RUQ abdominal pain Acute gastritis Hypertension Coronary arteriosclerosis Social History marital status: household members: spouse lives independently: Yes occupational status: previously employed Smoking Status: Former smoker alcohol intake: current Smoking Status: Former smoker alcohol intake frequency: holidays/special occasions only Alcohol type: beer Substance Use Type: does not use Exam Initial Vital Signs Initial Vital Signs: Vital Signs Temperature 97.6 F 12/24/23 17:54 Pulse Rate 72 12/24/23 17:54 Respiratory Rate 16 12/24/23 17:54 Blood Pressure 194/80 H 12/24/23 17:54 Pulse Oximetry 100 12/24/23 17:54 Oxygen Delivery Method Room Air 12/24/23 17:54 Const: Awake, alert, no acute distress, nontoxic appearing HEENT: Normocephalic, TM normal bilaterally Cardiac: regular rate, regular rhythm RESP: unlabored, clear bilaterally, no wheezing Skin: Warm, Dry, intact, no rashes Neuro: AO x3, CN II-XII grossly intact, moves all extremities Course Orders Ordered: Discontinued Medications Diazepam (Diazepam 10 Mg/2 Ml Syringe) 2 mg IV NOW ONE Stop: 12/24/23 20:09 Last Admin: 12/24/23 20:24 Dose: 2 mg Documented By: ROD Vital Signs Vital signs: Vital Signs - 8 hr 12/24/23 17:54 Temperature 97.6 F Pulse Rate 72 Respiratory Rate 16 Blood Pressure 194/80 H Pulse Oximetry 100 Oxygen Delivery Method Room Air MDM - Anxiety Differential Diagnosis Differential diagnosis: Likely hyperventilation, acute anxiety and other (Tinnitus) Lab Data 12/24/23 20:23 12/24/23 20:23 Labs: Lab Results 12/24/23 Range/Units 20:23 WBC 10.4 (4.5-11.0) X10^3/uL RBC 5.23 (4.5-5.9) X10^6/uL Hgb 15.7 (13.5-17.5) g/dL Hct 44.3 (41-53) % MCV 84.7 (80-100) fL MCH 30.1 (26-34) PG MCHC 35.5 (30-36) % RDW 13.7 (11.6-14.8) % Plt Count 174 (150-400) X10^3/uL Neut % (Auto) 66.8 (50-75) % Lymph % (Auto) 22.4 L (25-40) % Daniels % (Auto) 7.4 (3-14) % Eos % (Auto) 2.6 (2-4) % Baso % (Auto) 0.8 (0-2) % Neut # (Auto) 6900 (6311-8555) /uL Lymph # (Auto) 2300 (5235-3841) /uL Daniels # (Auto) 800 (0-900) /uL Eos # (Auto) 300 (0-450) /uL Baso # (Auto) 100 (0-100) /uL Sodium 141 (137-145) mmol/L Potassium 3.3 L (3.4-5.1) mmol/L Chloride 105 (98-107) mmol/L Carbon Dioxide 29 (22-32) mmol/L BUN 14 (9-20) mg/dL Creatinine 1.07 (0.66-1.25) mg/dL Estimated GFR > 60 (>60) mL/min BUN/Creatinine Ratio 13.1 (6-22) Glucose 97 (80-110) mg/dL Calcium 9.3 (8.4-10.2) mg/dL Magnesium 2.0 (1.6-2.3) mg/dL Total Bilirubin 1.0 (0.2-1.3) mg/dL AST 40 (17-59) IU/L ALT 52 H (<50) IU/L Alkaline Phosphatase 78 (38-126) U/L Total Protein 7.5 (6.3-8.2) g/dL Albumin 4.6 (3.5-5.0) g/dL Globulin 2.9 (1.7-4.1) g/dL Albumin/Globulin Ratio 1.6 (1.0-2.8) TSH 3.61 (0.47-4.68) uIU/mL MDM Narrative Medical decision making narrative: Bilateral tinnitus and worsening anxiety. Patient does seem very anxious about his hearing, but denies any suicidal thoughts. Medication list reviewed, he is on chlorthalidone which may be contributing to his tinnitus. With the abrupt worsening of patient's psychiatric status with worsening depression and anxiety symptoms laboratory work including electrolytes and TSH order to assess for any other underlying possible pathology. Patient given Valium for both anxiety and help with tinnitus. Patient informed of laboratory results as well as management of tinnitus. He was advised to stop taking chlorthalidone see if this improved his symptoms. He was strongly advised to keep the ENT appointment as scheduled, however tinnitus treatment is usually multifactorial and does include some component of cognitive behavioral therapy. Patient given a as needed prescription of hydroxyzine for daily anxiety, as well as a short course of Valium as needed to help him sleep at night if he was unable to due to the intensity of his tinnitus. Discharge Plan Departure Patient Disposition: Home Clinical Impression: Tinnitus Instructions: DI for Tinnitus Activity Restrictions/Additional Instructions: Your laboratory work today was normal. I do recommend stopping the chlorthalidone as this may be contributing to your tinnitus. I am discharging you on several different medications. Hydroxyzine can be used up to 3 times daily as needed for acute anxiety. At night if you are having difficulty sleeping a short course of Valium has been sent to your pharmacy. Do not take this medication with alcohol or narcotic pain medication. Try half tablet at a time to start, and use only if absolutely needed. In place of your chlorthalidone I am switching your blood pressure medication to amlodipine. Take this 1 time daily. Please follow up with your primary care doctor and your ear nose and throat doctor. Prescriptions: New amlodipine 10 mg tablet 10 mg PO DAILY Qty: 30 0RF hydroxyzine pamoate 25 mg capsule 25 mg PO TID PRN (Reason: anxiety) Qty: 30 0RF diazepam 5 mg tablet 5 mg PO BEDTIME PRN (Reason: sleep) Qty: 10 0RF No Action cholecalciferol (vitamin D3) 125 mcg (5,000 unit) capsule 50 mcg PO DAILY chlorthalidone 50 mg tablet 25 mg PO DAILY losartan 100 mg tablet 100 mg PO DAILY carvedilol 6.25 mg tablet 6.25 mg PO BID esomeprazole magnesium [Nexium] 40 mg capsule,delayed release(DR/EC) 40 mg PO DAILY gabapentin 100 mg capsule 100 mg PO BID ascorbic acid (vitamin C) 500 mg capsule 1,000 mg PO DAILY Galzin 50 mg (zinc) capsule 50 mg PO DAILY valacyclovir 1 gram tablet 1,000 mg PO PRN PRN (Reason: Breakout/flare) atorvastatin [Lipitor] 80 mg Tablet 80 mg PO DAILY tramadol 50 mg Tablet 50 mg PO QID PRN (Reason: Pain, Moderate (4-6)) Qty: 20 0RF Rx Instructions: May take 1-2 tabs as needed for pain. docusate sodium [Colace] 100 mg capsule 100 mg PO BID Qty: 30 0RF Rx Instructions: take while taking pain medication to prevent constipation. aspirin 81 mg capsule 81 mg PO DAILY Qty: 30 0RF Rx Instructions: Restart in 5 days. sildenafil 100 mg Tablet 100 mg PO PRN PRN (Reason: Sexual Activity) Rx Instructions: administer 30 minutes to 4 hours before activity Referrals: Bryan Barr MD [Primary Care Provider] - Stand Alone Forms: Patient Portal/API, Work Release Note
[2023-12-24] MEDS: diazePAM 10 MG/2 ML SYRINGE 2 MG IV (20:24)
[2023-12-24 20:40] LABS: Add Manual Diff / Slide Review NO; Basophils Absolute Auto 100 /uL (0-100); Basophils Percent Auto 0.8 % (0-2); Eosinophils Absolute Auto 300 /uL (0-450); Eosinophils Percent Auto 2.6 % (2-4); Hematocrit 44.3 % (41-53); Hemoglobin 15.7 g/dL (13.5-17.5); Lymphocytes Absolute Auto 2300 /uL (1100-4500); Lymphocytes Percent Auto 22.4 % (25-40); Mean Corpuscular HGB Conc 35.5 % (30-36); Mean Corpuscular Hemoglobin 30.1 PG (26-34); Mean Corpuscular Volume 84.7 fL (80-100); Monocytes Absolute Auto 800 /uL (0-900); Monocytes Percent Auto 7.4 % (3-14); Neutrophils Absolute Auto 6900 /uL (1500-7000); Neutrophils Percent Auto 66.8 % (50-75); Platelet Count 174 X10^3/uL (150-400); Red Blood Cell Count 5.23 X10^6/uL (4.5-5.9); Red Cell Distribution Width 13.7 % (11.6-14.8); White Blood Cell Count 10.4 X10^3/uL (4.5-11.0)
[2023-12-24 20:55] LABS: Alanine Aminotransferase 52 IU/L (<50); Albumin 4.6 g/dL (3.5-5.0); Albumin Globulin Ratio 1.6 (1.0-2.8); Alkaline Phosphatase 78 U/L (38-126); Aspartate Aminotransferase 40 IU/L (17-59); BUN Creatinine Ratio 13.1 (6-22); Blood Urea Nitrogen 14 mg/dL (9-20); Calcium 9.3 mg/dL (8.4-10.2); Carbon Dioxide 29 mmol/L (22-32); Chloride 105 mmol/L (98-107); Estimated Glomerular Filt Rate > 60 mL/min (>60); Globulin 2.9 g/dL (1.7-4.1); Glucose 97 mg/dL (80-110); HEMOLYSIS 18 (0-50); Potassium 3.3 mmol/L (3.4-5.1); Sodium 141 mmol/L (137-145); Total Protein 7.5 g/dL (6.3-8.2)
[2023-12-24 21:35] LABS: Thyroid Stimulating Hormone 3.61 uIU/mL (0.47-4.68)
[2023-12-24 23:06] VITALS: BP 193/87; PULSE 72; RESP 16; O2SAT 97
== END 2023-12-24 23:08 | disposition home or self-care (01) ==
PROVIDERS: Emergency Provider Emergency Medicine; PCP Family Medicine
DX: H93.12 Tinnitus, left ear (principal); F41.9 Anxiety disorder, unspecified
CPT/HCPCS: 80053; 83735; 84443; 85025; 96374; 99283; 99284; J3360

== ENCOUNTER → 2024-07-15 08:18 | Outpatient (CLI) | payer MEDICARE, OTHER, SELFPAY ==
[2022-09-19 16:48] VITALS: BMI 32.3
--- NOTE | 2024-07-15 | DI.US.S_ITS ---
PROCEDURE: US THYROID INDICATIONS: Hypothyroidism, unspecified TECHNIQUE: Real-time scanning was performed of the thyroid gland, with image documentation. COMPARISON: None. FINDINGS: Thyroid: Right lobe measures 4.1 x 1.4 x 1.0 cm. Left lobe measures 3.3 x 1.6 x 1.2 cm. Isthmus is 4 cm thick. Echotexture is homogeneous. IMPRESSION: Homogeneous gland without focal nodularity. Dictated by: Africa Gould M.D. on 07/15/2024 at 14:58 Approved by: Africa Gould M.D. on 07/15/2024 at 14:59
== END ==
PROVIDERS: PCP Family Medicine; Referring Provider Family Medicine; Visit Provider Family Medicine
DX: E03.9 Hypothyroidism, unspecified (principal)
CPT/HCPCS: 76536

== ENCOUNTER 2024-09-13 09:15 | Day surgery (SDC) | payer MEDICARE, OTHER, SELFPAY ==
[2022-09-19 16:48] VITALS: BMI 32.3
--- NOTE | 2024-09-13 | PATH_ITS ---
[facility] Accession Number: [id number] No. of containers..01 Tissue . 01 Material submitted: . colon - ASCENDING POLYP X 3 . 01 Diagnosis: ASCENDING COLON POLYPS: Tubular adenomas. MRV 09/17/2024 1238 Local . 01 Electronically signed: . Genia Valenzuela MD, Pathologist NPI- [id number] . 01 Gross description: . ASCENDING POLYP X 3: Received in formalin are multiple fragment(s) of pritchett, soft tissue measuring 0.1 x 0.1 x 0.1 cm to 0.6 x 0.4 x 0.4 cm submitted entirely in 1 cassette(s) /ANDREA 09/14/2024 0124 Local . 01 Pathologist provided ICD-10: D12.2 . 01 CPT . 581943 Specimen Comment: A courtesy copy of this report has been sent to [facility] Pathology Performed at: [address] [address], [place], [place] [id number] MD Hardik Brothers MD Phone: [phone]
[2024-09-13] MEDS: LACTATED RINGERS 1,000 ML 100 ML IV (11:05)
[2024-09-13 11:16] VITALS: BP 169/73; PULSE 70; RESP 16; TEMP 36.3; O2SAT 98
--- NOTE | 2024-09-13 12:07 | PM.HP.IH.1 ---
History of Present Illness History of Present Illness Date Patient Seen: 09/13/24 Time Patient Seen: 12:07 Chief complaint: SDC Narrative: 69-year-old white male, last colonoscopy 5 years ago with 2 polyps removed, only 1 retrieved consistent with a tubular adenoma less than 10 mm in size, was also knows prolapsed internal hemorrhoids. He had previous hemorrhoid banding which he tolerated well. However he has not doing fiber supplementation, he sits on the toilet for many minutes at a time and tends to strain. [facility] Medical History Personal history of colonic polyps Prolapsed internal hemorrhoids Exertional dyspnea Acute cholecystitis due to biliary calculus Headache, migraine Neuropathy HLD (hyperlipidemia) Sleep apnea History of COVID-19 (10/2021) Myocardial infarction (07/1993) Biliary colic RUQ abdominal pain Acute gastritis Hypertension Coronary arteriosclerosis Social History marital status: household members: spouse lives independently: Yes occupational status: previously employed Smoking Status: Former smoker alcohol intake: current Meds Home Medications and Allergies Home Medications Medication Instructions Recorded Confirmed Type atorvastatin 80 mg tablet (Lipitor) 80 mg PO DAILY 07/22/19 07/29/24 History ascorbic acid (vitamin C) 500 mg 1,000 mg PO DAILY 09/01/22 07/29/24 History capsule carvedilol 6.25 mg tablet 6.25 mg PO BID 09/01/22 09/13/24 History chlorthalidone 50 mg tablet 25 mg PO DAILY 09/01/22 09/27/22 History cholecalciferol (vitamin D3) 125 50 mcg PO DAILY 09/01/22 07/29/24 History mcg (5,000 unit) capsule esomeprazole magnesium 40 mg 40 mg PO DAILY 09/01/22 09/13/24 History capsule,delayed release (Nexium) valacyclovir 1 gram tablet 1,000 mg PO PRN PRN Breakout/flare 09/01/22 07/29/24 History zinc acetate 50 mg (zinc) capsule 50 mg PO DAILY 09/01/22 07/29/24 History (Galzin) sildenafil 100 mg tablet 100 mg PO PRN PRN Sexual Activity 09/09/22 07/29/24 History aspirin 81 mg capsule 81 mg PO DAILY #30 caps 09/11/22 09/13/24 Rx amlodipine 10 mg tablet 10 mg PO DAILY #30 tabs 12/24/23 07/29/24 Rx hydroxyzine pamoate 25 mg capsule 25 mg PO TID PRN anxiety #30 caps 12/24/23 07/29/24 Rx diazepam 5 mg tablet 2.5 mg PO BEDTIME PRN sleep 07/29/24 History gabapentin 100 mg capsule 200 mg PO BID 07/29/24 07/29/24 History nitroglycerin 0.4 mg sublingual 0.4 mg sublingual Q5-15M PRN 07/29/24 07/29/24 History tablet sodium,potassium,mag sulfates 17.5 See Rx Instructions PO .COMPLEX 07/31/24 Rx gram-3.13 gram-1.6 gram oral soln #354 mL (Suprep Bowel Prep Kit) amlodipine 10 mg tablet 10 mg PO DAILY 09/13/24 09/13/24 History Allergies Allergy/AdvReac Type Severity Reaction Status Date / Time amoxicillin Allergy Intermediate Hives Verified 09/13/24 11:11 REI Inhibitors Allergy Unknown Swellling, Verified 09/13/24 11:11 angioedema lisinopril Allergy Verified 09/13/24 11:11 Review of Systems Review of Systems ROS: Yes All systems reviewed with the patient and are negative except as otherwise documented Exam Vital Signs (past 8 hours): - 09/13/24 11:16 Temperature 97.4 F L Pulse Rate 70 Respiratory Rate 16 Blood Pressure 169/73 H Pulse Oximetry 98 Oxygen Delivery Method Room Air Oxygen Delivery Method Room Air Narrative Exam Narrative: Gen: NAD, sitting comfortably in bed, appears well HEENT: Sclera are anicteric, head is normocephalic and atraumatic, trachea is midline. CV: RRR, no JVD Resp: clear to auscultation bilaterally, equal chest wall movement bilaterally Abd: soft, nontender, normoactive bowel sounds Ext: no edema, full range of motion Neuro: Cranial nerves II-XII grossly intact, no focal deficits Skin: No erythema or ecchymosis Assessment & Plan Assessment and plan (1) Prolapsed internal hemorrhoids: Status: Acute (2) Personal history of colonic polyps: Status: Acute Assessment & Plan narrative: Patient presents for colonoscopy and hemorrhoid banding Risks, benefits, alternatives to colonoscopy explained, including but not limited to bowel perforation or other serious complication requiring surgery at less than 1 in 5000 colonoscopies, abdominal pain, cramping or bleeding and less than 1% of colonoscopies, and the chances that we find a diagnosis that would require further intervention of about 2% or rebleeding of the hemorrhoids after banding or repeat procedure. Patient agrees to proceed. Time-Based Coding :: [TOTAL MINUTES] spent with patient and on the chart (including review of chart, obtaining history, exam, reviewing outside data, placing orders, documenting exam and treatment plan, and counseling patient) on [DATE]. PROFEE Spanish Translator Document charge(s): No
--- NOTE | 2024-09-13 12:42 | P.OP.COLON_ITS ---
Operative Date/Time/Diagnoses Date of procedure: 09/13/24 Time of procedure: 12:42 Pre-op diagnosis: Colon screening, prolapsed internal hemorrhoids Post-op diagnosis: same (Polyps ascending colon polyps x3) Procedure & Clinicians Study performed: Colonoscopy with cold snare polypectomy Anoscopy with rubber-band ligation of internal hemorrhoid Same procedure as scheduled: Yes Indications: Personal history of polyps, internal hemorrhoids with prolapse Surgeon: Marco Mehta Procedure Notes SCOAP/Timeout: Performed Procedure in detail: Time-out was performed. Mac was induced. Patient was placed in left lateral d ecubitus position. The perineum was inspected without any gross abnormality. Lubricated pediatric colonoscope was inserted and advanced to the cecum. The terminal ileum was intubated. The colonoscope was withdrawn slowly inspecting the circumference of the colon. Three polyps were noted in the ascending colon, all completely removed with cold snare polypectomy and retrieved. Very small polyps may have been missed, prep quality was adequate. Retroflexed view of the rectum showed 1 large, prolapsed nonbleeding internal hemorrhoid. The colonoscope was removed and anoscope was inserted. A O'Samm suctioned band ligator was used to apply to bands to his hemorrhoid in the left anterior quadrant. The scope was withdrawn the patient was taken to PACU in good condition. Scope withdrawal time: 13 Findings: internal hemorrhoids and polyp(s) Specimen(s): other (Ascending colon polyps x3) Complications: none Impression: Polyps and hemorrhoids Post-procedure Recommendations: Colonoscopy in 3 years and High fiber diet Plan for aftercare: home with spouse Follow up: as needed Disposition: PACU
[2024-09-13 12:47] VITALS: BP 91/54; PULSE 61; RESP 14; TEMP 36.2; O2SAT 90
[2024-09-13 12:52] VITALS: BP 91/54; PULSE 60; RESP 13; O2SAT 95
[2024-09-13 12:57] VITALS: BP 100/59; PULSE 59; RESP 13; TEMP 36.3; O2SAT 95
[2024-09-13 13:02] VITALS: BP 120/63; PULSE 65; RESP 14; TEMP 36.2; O2SAT 96
[2024-09-13 13:20] VITALS: BP 123/68; PULSE 66; RESP 16; TEMP 36.2; O2SAT 94
== END 2024-09-13 13:30 | disposition home or self-care (01) ==
PROVIDERS: PCP Family Medicine; Referring Provider Surgery; Visit Provider Surgery
PROC: 0DJD8ZZ Inspection of Lower Intestinal Tract, Via Natural or Artificial Opening Endoscopic (ICD-10-PCS; CPT 45378; principal; 2024-09-13 11:00)
DX: Z12.11 Encounter for screening for malignant neoplasm of colon (principal); Z86.0100 Personal history of colon polyps, unspecified; K64.8 Other hemorrhoids; D12.2 Benign neoplasm of ascending colon
CPT/HCPCS: 45385; 46221; J2704

== ENCOUNTER → 2025-04-08 12:50 | Outpatient (CLI) | payer MEDICARE, OTHER, SELFPAY ==
[2022-09-19 16:48] VITALS: BMI 32.3
--- NOTE | 2025-04-08 12:55 | DI.RAD.S_ITS ---
PROCEDURE: XR HIP W PEL IF DONE LT 2V INDICATIONS: Hip pain TECHNIQUE: 2 views of the pelvis and left hip were acquired. COMPARISON: None. FINDINGS: Moderate degenerative changes bilateral hips with joint space narrowing and osteophytes, Kellgren Daniel grade 3. [id number] vascular calcifications. Degenerative changes lower lumbar spine and sacroiliac joints partially imaged. No radiographic evidence of displaced fracture, dislocation. IMPRESSION: Degenerative changes. If symptoms persist or worsen, or there is high clinical suspicion of pelvic/hip abnormality, MRI could be performed. Dictated by: Baldemar Ibarra M.D. on 04/08/2025 at 16:42 Approved by: Baldemar Ibarra M.D. on 04/08/2025 at 16:45
== END ==
LOC: RAD 12:53
PROVIDERS: PCP Family Medicine; Referring Provider Family Medicine; Visit Provider Family Medicine
DX: M25.552 Pain in left hip (principal)
CPT/HCPCS: 73502